=== PATIENT | female | born 1960 | race Caucasian/White ===

== ENCOUNTER → 2017-01-15 | Outpatient (CLI) | payer BC | LOC: MW.CHIM 11:26 | PROVIDERS: ATTEND Internal Medicine | DX: Z01.818 Encounter for other preprocedural examination (principal) | CPT/HCPCS: 36415; 85025; 85610 ==

== ENCOUNTER 2017-01-30 06:22 | Day surgery (SDC) | payer BC ==
[2017-01-30] MEDS ORDERED: Aloe Vera/Sodium Chloride Gel 14.1 GM Tube ONE (07:15)
[2017-01-30] MEDS ORDERED: EPINEPHrine 1:1000 1 MG/ML SDV ONE (07:15)
[2017-01-30] MEDS ORDERED: Lidocaine 2% 5 ML SDV ONE ×2 (07:16→07:34)
[2017-01-30] MEDS ORDERED: Thrombin (Bovine) 5,000 Unit Kit ONE (07:16)
[2017-01-30] MEDS ORDERED: Lidocaine 2% with EPINEPHrine 1:100,000 20 ML MDV ONE (07:16)
[2017-01-30] MEDS ORDERED: Oxymetazoline 0.05% Nasal Spray 15 ML Bottle ONE (07:17)
[2017-01-30] MEDS ORDERED: Remifentanil 1 MG Vial ONE (07:25)
[2017-01-30] MEDS ORDERED: Propofol 200 MG/20 ML SDV ONE (07:27)
[2017-01-30] MEDS ORDERED: fentaNYL 100 MCG/2 ML SDV ONE (07:27)
--- NOTE | 2017-01-30 07:31 | PCM.PREANE ---
Preanesthetic Assessment - Anesthesia/Transfusion/Family Hx Anesthesia History: Prior Anesthesia Reaction Type of Anesthesia Reaction: Excessive Nausea/Vomiting Other Type of Anesthesia Reaction Comment: Reports Nausea and vomiting post anesthesia, no known family hx: prblms Family History of Anesthesia Reaction: No Transfusion History: No Prior Transfusion(s) - Review of Systems General: No Symptoms Pulmonary: No Symptoms Cardiovascular: No Symptoms Gastrointestinal: No symptoms Neurological: No Symptoms Other: Reports: None - Physical Assessment NPO Status Date: 01/29/17 O2 Sat by Pulse Oximetry: 98 Respiratory Rate: 16 Vital Signs: Last Vital Signs Temp 36.9 C 01/30/17 06:45 Pulse 62 01/30/17 06:45 Resp 16 01/30/17 06:45 BP 97/70 01/30/17 06:45 Pulse Ox 98 01/30/17 06:45 Height: 1.55 m Weight: 54.431 kg ASA Class: 2 Mental Status: Alert & Oriented x3 Airway Class: Mallampati = 1 Dentition: Reports: Normal Dentition ROM/Head Extension: Full Lungs: Clear to auscultation, Normal respiratory effort Cardiovascular: Regular Rate, Regular Rhythm - Allergies Allergies/Adverse Reactions: Allergies Allergy/AdvReac Type Severity Reaction Status Date / Time erythromycin base Allergy Anaphylactic Verified 07/04/16 12:38 [Erythromycin Base] Shock fluticasone [From Flonase] Allergy Dizziness Verified 01/28/17 13:21 iodine Allergy Other Verified 07/04/16 12:38 Sulfa Allergy Rash Uncoded 07/04/16 12:38 - Anesthesia Plan Pre-Op Medication Ordered: None - Acknowledgements Anesthesia Type Planned: General Anesthesia Pt an Appropriate Candidate for the Planned Anesthesia: Yes Alternatives and Risks of Anesthesia Discussed w Pt/Guardian: Yes Pt/Guardian Understands and Agrees with Anesthesia Plan: Yes PreAnesthesia Questionnaire HEENT History: Reports: Other (see below) Other HEENT History: uses reading glasses, hx of fx nose Cardiovascular History: Reports: Other (see below) Other Cardiovascular History: states has low heart rate, states has "seepage", but was told it is normal Respiratory History: Reports: None Gastrointestinal History: Reports: None Genitourinary History: Reports: None VOCATIONAL EDUCATION PROFESSIONAL History: Reports: None Musculoskeletal History: Reports: Back pain, chronic, Neck pain, chronic Neurological History: Reports: None Psychiatric History: Reports: None Endocrine/Metabolic History: Reports: None Hematologic History: Reports: None Immunologic History: Reports: None Oncologic (Cancer) History: Reports: None Dermatologic History: Reports: None - Past Surgical History Head Surgeries/Procedures: Reports: None HEENT Surgical History: Reports: Cataract surgery Cardiovascular Surgical History: Reports: None GI Surgical History: Reports: Appendectomy Female Surgical History: Reports: Other (see below) Other Female Surgeries/Procedures: Laparoscopy Endocrine Surgical History: Reports: None Neurological Surgical History: Reports: None Musculoskeletal Surgical History: Reports: None Oncologic Surgical History: Reports: None - SUBSTANCE USE Smoking Status *Q: Never Smoker Tobacco Use Within Last Twelve Months: No Days Per Week of Alcohol Use: 0 Number of Drinks Per Day: 0 Total Drinks Per Week: 0 Recreational Drug Use History: No - HOME MEDS Home Medications: Home Meds Estradiol [Vagifem] 1 tab VAG ASDIRECTED 01/28/17 [History] Multivitamin [Multivitamins] 1 tab PO DAILY 01/28/17 [History] Simply Saline 9% 1 spray NASBOTH ASDIRECTED 01/28/17 [History] medroxyPROGESTERone Acetate [Medroxyprogesterone Acetate] 1 tab PO ASDIRECTED [History] - CURRENT (IN HOUSE) MEDS Current Meds: Current Medications Discontinued Medications Epinephrine HCl (Adrenalin 1:1000) Confirm Administered Dose 3 mg .ROUTE .STK- MED ONE Stop: 01/30/17 07:16 Lidocaine (Xylocaine-Mpf 2%) Confirm Administered Dose 10 ml .ROUTE .STK-MED ONE Stop: 01/30/17 07:17 Lidocaine HCl (Xylocaine-Mpf 1%) Confirm Administered Dose 10 ml .ROUTE .STK- MED ONE Stop: 01/30/17 07:16 Lidocaine/Epinephrine (Xylocaine 2% With Epinephrine 1:100,000) Confirm Administered Dose 20 ml .ROUTE .STK-MED ONE Stop: 01/30/17 07:17 Oxymetazoline HCl (Afrin Original 0.05% Nasal [place]) Confirm Administered Dose 30 ml .ROUTE .STK-MED ONE Stop: 01/30/17 07:18 Remifentanil (Ultiva) Confirm Administered Dose 1 mg .ROUTE .STK-MED ONE Stop: 01/30/17 07:26 Sodium Chloride ([place] Saline Nasal Gel) Confirm Administered Dose 14.1 gm .ROUTE .STK-MED ONE Stop: 01/30/17 07:16 Thrombin (Thrombin-Jmi) Confirm Administered Dose 5,000 unit .ROUTE .STK-MED ONE Stop: 01/30/17 07:17 Preanesthetic Assessment - ANESTHESIA/TRANSFUSION/FAMILY HX Anesthesia/Transfusion History: Prior Anesthesia Other Type of Anesthesia Reaction Comment: Reports Nausea and vomiting post anesthesia, no known family hx: prblms Family History of Anesthesia Reaction: No Intubation History: Unknown - PHYSICAL ASSESSMENT O2 Sat by Pulse Oximetry: 98 RR: 16 Vital Signs: Last Vital Signs Temp 36.9 C 01/30/17 06:45 Pulse 62 01/30/17 06:45 Resp 16 01/30/17 06:45 BP 97/70 01/30/17 06:45 Pulse Ox 98 01/30/17 06:45 Height: 1.55 m Weight: 54.431 kg - ALLERGIES Allergies/Adverse Reactions: Allergies Allergy/AdvReac Type Severity Reaction Status Date / Time erythromycin base Allergy Anaphylactic Verified 07/04/16 12:38 [Erythromycin Base] Shock fluticasone [From Flonase] Allergy Dizziness Verified 01/28/17 13:21 iodine Allergy Other Verified 07/04/16 12:38 Sulfa Allergy Rash Uncoded 07/04/16 12:38
[2017-01-30] MEDS ORDERED: Neostigmine Methylsulfate 1 MG/ML 5 ML Syringe ONE (07:34)
[2017-01-30] MEDS ORDERED: diphenhydrAMINE 50 MG/ML SDV ONE (07:34)
[2017-01-30] MEDS ORDERED: Rocuronium 10 MG/ML 10 ML Syringe ONE (07:34)
[2017-01-30] MEDS ORDERED: Dexamethasone 4 MG/ML 5 ML MDV ONE (07:34)
[2017-01-30] MEDS ORDERED: Ondansetron 4 MG/2 ML SDV ONE ×2 (07:34→11:33)
[2017-01-30] MEDS ORDERED: Midazolam 1 MG/ML 2 ML SDV ONE (07:39)
--- NOTE | 2017-01-30 07:54 | PCM.HPR ---
H & P Addendum review - H & P Addendum Review Date of Original H & P: 01/15/17 Date Reviewed: 01/30/17 Time Reviewed: 07:50 Patient was examined: No Changes
[2017-01-30] MEDS ORDERED: ePHEDrine 50 MG/ML SDV ONE (08:56)
[2017-01-30] MEDS ORDERED: Phenylephrine/Normal Saline 100 MCG/ML 10 ML Syringe ONE (09:14)
[2017-01-30] MEDS ORDERED: Mineral Oil/Petrolatum Ophth Oint 3.5 GM Tube ONE (09:15)
[2017-01-30] MEDS ORDERED: fentaNYL 100 MCG/2 ML SDV IVPUSH PRN (09:41)
[2017-01-30] MEDS ORDERED: Ondansetron 4 MG/2 ML SDV IVPUSH ONE ×2 (10:59→11:45)
--- NOTE | 2017-01-30 11:27 | PCM.OPNOTE ---
- General Post-Op/Procedure Note Date of Surgery/Procedure: 01/30/17 Condition: Good Free Text/Narrative:: Intake & Output 01/29/17 01/30/17 01/30/17 22:59 06:59 14:59 Intake Total 1200 Balance 1200 Diagnosis: Right nasal polyp,right nasal congestion, Post nasal drip Procedure: Right endoscopic nasal polypectomy [ CPT 57306] w sinus navigation [ CPT 48888] Surgeon: Cynthia Young MD Anesthesia: GA Anesthesiologist: Dr Curtis Date of procedure: 01/30/17 Indications: Right nasal polyp,right nasal congestion, Post nasal drip Findings: Right Grade 2 nasal polyp - in the sphenoethmoid recess and originating from the nasal septal mucosa; Sphenoid sinus ostium visualized - sinus healthy Operation Details: The Videdressing navigation system was set up and the Tracker was fixed to the fore head as per protocol. Successful registration was obtained. A 0 degree pediatric rigid nasal endoscope was used and a cottonoid pledget soaked in Afrin and then followed by 1: 1000 epinephrine was placed in the right posterior nasal cavity between the septum and superior turbinate - spheno ethmoid recess. After appropriate period of decongestion the cottonoid pledgets were removed. Photo documentation was obtained. The nasal septum was gently pushed to the contralateral side with freer elevator and the 0 rigid nasal endoscope was advanced into the spheno ethmoid recess. A 3.0 microdebrider with navigation attached to it was used and the polyp was removed. Hemostasis was achieved and a small piece of surgicel was placed in the operated site. At all times - navigation accuracy and monitoring was maintained. This concluded the procedure and the patient was handed over to anesthesia for recovery. Specimens: The polyp tissue in suction trap IV fluids: as above Blood products: nil Blood loss : 2 ml Disposition: PACU for recovery Follow up: In 1 week.
[2017-01-30] MEDS ORDERED: Acetaminophen 1,000 MG in Premix Bag 1 BAG IV ONE (12:10)
[2017-01-30 13:15] VITALS: BP 122/62
--- NOTE | 2017-01-30 13:23 | PCM48HPAN ---
Post Anesthesia Note - EVALUATION WITHIN 48HRS OF ANESTHETIC Vital Signs in Normal Range: Yes Patient Participated in Evaluation: Yes Respiratory Function Stable: Yes Airway Patent: Yes Cardiovascular Function Stable: Yes Hydration Status Stable: Yes Pain Control Satisfactory: Yes Nausea and Vomiting Control Satisfactory: Yes Mental Status Recovered: Yes
--- NOTE | 2017-01-30 13:23 | PCM.POSTAN ---
POST ANESTHESIA ASSESSMENT - MENTAL STATUS Mental Status: alert, oriented - RESPIRATORY Respiratory Status: respiratory rate WNL, airway patent - CARDIOVASCULAR CV Status: pulse rate WNL, blood pressure stable - GASTROINTESTINAL GI Status: nauseau - POST OP HYDRATION Hydration Status: adequate & stable
== END 2017-01-30 13:10 | disposition home or self-care (01) ==
LOC: MW.SDS 06:22
PROVIDERS: ATTEND Otolaryngology
PROC: 8E09XBZ Computer Assisted Procedure of Head and Neck Region (ICD-10-PCS; principal; 2017-01-30)
PROC: 09BK0ZZ Excision of Nasal Mucosa and Soft Tissue, Open Approach (ICD-10-PCS; 2017-01-30)
DX: J33.8 Other polyp of sinus (principal); Z88.8 Allergy status to other drugs, medicaments and biological substances; Z88.1 Allergy status to other antibiotic agents; Z88.2 Allergy status to sulfonamides; Z91.041 Radiographic dye allergy status; Z91.048 Other nonmedicinal substance allergy status; Z79.899 Other long term (current) drug therapy; Z98.49 Cataract extraction status, unspecified eye; Z90.49 Acquired absence of other specified parts of digestive tract; Z98.890 Other specified postprocedural states
CPT/HCPCS: 31237; 61782; 88304; A9270; J0171; J1100; J1200; J2250; J2405; J3010; 00160; J2704

== ENCOUNTER 2020-08-24 14:32 | Observation (INO) | payer OTHER ==
[2020-08-24] MEDS ORDERED: Meclizine 25 MG Tab PO ONE (14:53)
--- NOTE | 2020-08-24 14:58 | EDM.PDOC ---
ED HPI GENERAL MEDICAL PROBLEM - General Chief Complaint: Back Pain or Injury Stated Complaint: LOWER BACK PAIN Time Seen by Provider: 08/24/20 14:37 Source of Information: Reports: Patient History Limitations: Reports: No Limitations - History of Present Illness INITIAL COMMENTS - FREE TEXT/NARRATIVE: Patient is a 59-year-old female who presents today for dizziness. Patient does feel that she is off balance. Patient is a symptom started on Saturday. Patient states that symptoms are made worse with standing or turning head. Patient states that this medicine symptoms go away. Patient denies nausea vomiting diarrhea chest pain abdominal pain. bilateral flank Pain Score (Numeric/FACES): 5 - Related Data Allergies Allergy/AdvReac Type Severity Reaction Status Date / Time erythromycin base Allergy Anaphylactic Verified 08/24/20 14:44 [Erythromycin Base] Shock fluticasone [From Flonase] Allergy Dizziness Verified 08/24/20 14:44 iodine Allergy Other Verified 08/24/20 14:44 Sulfa Allergy Rash Uncoded 08/24/20 14:44 Home Meds: Home Meds Multivitamin [Multivitamins] 1 tab PO DAILY 01/28/17 [History] Ondansetron [Zofran ODT] 1 tab PO Q6H PRN 08/24/20 [History] metroNIDAZOLE [Metronidazole] 1 tab PO TID 08/24/20 [History] Past Medical History HEENT History: Reports: None Other HEENT History: uses reading glasses, hx of fx nose Cardiovascular History: Reports: None Other Cardiovascular History: states has low heart rate, states has "seepage", but was told it is normal Respiratory History: Reports: None Gastrointestinal History: Reports: None Genitourinary History: Reports: None PIGMENT PRESSER History: Reports: Endometriosis Musculoskeletal History: Reports: None Neurological History: Reports: None Psychiatric History: Reports: None Endocrine/Metabolic History: Reports: None Hematologic History: Reports: None Immunologic History: Reports: None Oncologic (Cancer) History: Reports: None Dermatologic History: Reports: None - Past Surgical History Head Surgeries/Procedures: Reports: None HEENT Surgical History: Reports: Other (See Below) Other HEENT Surgeries/Procedures: Nasal Polyp GI Surgical History: Reports: Appendectomy Female Surgical History: Reports: Other (See Below) Other Female Surgeries/Procedures: Urethral reconstruction, Laparoscopy Endocrine Surgical History: Reports: None Neurological Surgical History: Reports: None Oncologic Surgical History: Reports: None Social & Family History - Family History Family Medical History: Noncontributory - Tobacco Use Tobacco Use Status *Q: Never Tobacco User - Recreational Drug Use Recreational Drug Use: No ED ROS GENERAL - Review of Systems Review Of Systems: Comprehensive ROS is negative, except as noted in HPI. Respiratory: Reports: No Symptoms Cardiovascular: Reports: No Symptoms GI/Abdominal: Reports: No Symptoms : Reports: No Symptoms Musculoskeletal: Reports: Back Pain Skin: Reports: No Symptoms Neurological: Reports: Dizziness Psychiatric: Reports: No Symptoms Hematologic/Lymphatic: Reports: No Symptoms ED EXAM, GENERAL - Physical Exam Exam: See Below Exam Limited By: No Limitations General Appearance: Alert, WD/WN Eye Exam: Bilateral Eye: EOMI, PERRL Respiratory/Chest: No Respiratory Distress Cardiovascular: Regular Rate, Rhythm GI/Abdominal: Normal Bowel Sounds Neurological: Alert, Oriented, CN II-XII Intact, Normal Cognition, Normal Gait Course - Vital Signs Last Recorded V/S: Last Vital Signs Temp 97.4 F 08/24/20 14:40 Pulse 61 08/24/20 18:20 Resp 14 08/24/20 18:20 BP 110/61 08/24/20 18:20 Pulse Ox 96 08/24/20 18:20 - Orders/Labs/Meds Orders: Medication Orders Acetaminophen (Tylenol) 650 mg PO Q4H PRN PRN Reason: Pain (Mild 1-3)/fever Heparin Sodium (Porcine) (Heparin Sodium) 5,000 units SUBCUT Q8H [facility] Lactated Ringer's (Ringers, Lactated) 1,000 mls @ 999 mls/hr IV BOLUS ONE Stop: 08/24/20 20:03 Pantoprazole Sodium 40 mg/ (Sodium Chloride) 10 mls @ 300 mls/hr IV Q24H [facility] Ceftriaxone Sodium 1 gm/ (Sodium Chloride) 50 mls @ 100 mls/hr IV Q24H [facility] Lactated Ringer's (Ringers, Lactated) 1,000 mls @ 125 mls/hr IV ASDIRECTED [facility] Ondansetron HCl (Zofran Odt) 4 mg PO Q4H PRN PRN Reason: nausea, able to take PO Labs: Laboratory Tests 08/24/20 08/24/20 08/24/20 Range/Units 15:10 15:10 16:31 WBC 10.50 (4.0-11.0) K/uL RBC 4.99 (4.30-5.90) M/uL Hgb 15.3 (12.0-16.0) g/dL Hct 46.2 H (36.0-46.0) % MCV 92.6 (80.0-98.0) fL MCH 30.7 (27.0-32.0) pg MCHC 33.1 (31.0-37.0) g/dL RDW Std Deviation 43.0 (28.0-62.0) fl RDW Coeff of Janett 13 (11.0-15.0) % Plt Count 204 (150-400) K/uL MPV 9.80 (7.40-12.00) fL Neut % (Auto) 70.6 (48.0-80.0) % Lymph % (Auto) 20.2 (16.0-40.0) % [place] % (Auto) 8.3 (0.0-15.0) % Eos % (Auto) 0.6 (0.0-7.0) % Baso % (Auto) 0.3 (0.0-1.5) % Neut # (Auto) 7.4 H (1.4-5.7) K/uL Lymph # (Auto) 2.1 (0.6-2.4) K/uL [place] # (Auto) 0.9 H (0.0-0.8) K/uL Eos # (Auto) 0.1 (0.0-0.7) K/uL Baso # (Auto) 0.0 (0.0-0.1) K/uL Nucleated RBC % 0.0 /100WBC Nucleated RBCs # 0 K/uL Sodium 139 (136-145) mmol/L Potassium 3.8 (3.5-5.1) mmol/L Chloride 105 (98-107) mmol/L Carbon Dioxide 24.6 (21.0-32.0) mmol/L BUN 32 H (7.0-18.0) mg/dL Creatinine 3.8 H (0.6-1.0) mg/dL Est Cr Clr Drug Dosing 11.17 mL/min Estimated GFR (MDRD) 12.1 ml/min Glucose 113 H (74-106) mg/dL Calcium 8.9 (8.5-10.1) mg/dL Urine Color YELLOW Urine Appearance CLOUDY Urine pH 5.5 (5.0-8.0) Ur Specific [place] 1.010 (1.001-1.035) Urine Protein NEGATIVE (NEGATIVE) mg/dL Urine Glucose (UA) NEGATIVE (NEGATIVE) mg/dL Urine Ketones NEGATIVE (NEGATIVE) mg/dL Urine Occult Blood MODERATE H (NEGATIVE) Urine Nitrite NEGATIVE (NEGATIVE) Urine Bilirubin NEGATIVE (NEGATIVE) Urine Urobilinogen 0.2 (<2.0) EU/dL Ur Leukocyte Esterase MODERATE H (NEGATIVE) Urine RBC 3-6 (0-2/HPF) Urine WBC 5-10 (0-5/HPF) Ur Epithelial Cells RARE (NONE-FEW) Urine Bacteria FEW (NEGATIVE) SARS-CoV-2 RNA (RADHAMES) (NEGATIVE) 08/24/20 Range/Units 17:05 WBC (4.0-11.0) K/uL RBC (4.30-5.90) M/uL Hgb (12.0-16.0) g/dL Hct (36.0-46.0) % MCV (80.0-98.0) fL MCH (27.0-32.0) pg MCHC (31.0-37.0) g/dL RDW Std Deviation (28.0-62.0) fl RDW Coeff of Janett (11.0-15.0) % Plt Count (150-400) K/uL MPV (7.40-12.00) fL Neut % (Auto) (48.0-80.0) % Lymph % (Auto) (16.0-40.0) % [place] % (Auto) (0.0-15.0) % Eos % (Auto) (0.0-7.0) % Baso % (Auto) (0.0-1.5) % Neut # (Auto) (1.4-5.7) K/uL Lymph # (Auto) (0.6-2.4) K/uL [place] # (Auto) (0.0-0.8) K/uL Eos # (Auto) (0.0-0.7) K/uL Baso # (Auto) (0.0-0.1) K/uL Nucleated RBC % /100WBC Nucleated RBCs # K/uL Sodium (136-145) mmol/L Potassium (3.5-5.1) mmol/L Chloride (98-107) mmol/L Carbon Dioxide (21.0-32.0) mmol/L BUN (7.0-18.0) mg/dL Creatinine (0.6-1.0) mg/dL Est Cr Clr Drug Dosing mL/min Estimated GFR (MDRD) ml/min Glucose (74-106) mg/dL Calcium (8.5-10.1) mg/dL Urine Color Urine Appearance Urine pH (5.0-8.0) Ur Specific [place] (1.001-1.035) Urine Protein (NEGATIVE) mg/dL Urine Glucose (UA) (NEGATIVE) mg/dL Urine Ketones (NEGATIVE) mg/dL Urine Occult Blood (NEGATIVE) Urine Nitrite (NEGATIVE) Urine Bilirubin (NEGATIVE) Urine Urobilinogen (<2.0) EU/dL Ur Leukocyte Esterase (NEGATIVE) Urine RBC (0-2/HPF) Urine WBC (0-5/HPF) Ur Epithelial Cells (NONE-FEW) Urine Bacteria (NEGATIVE) SARS-CoV-2 RNA (RADHAMES) NEGATIVE (NEGATIVE) Meds: Medications Generic Name Dose Route Start Last Admin Trade Name Freq PRN Reason Stop Dose Admin Acetaminophen 650 mg 08/24/20 19:03 Tylenol PO Q4H PRN Pain (Mild 1-3)/fever Heparin Sodium (Porcine) 5,000 units 08/24/20 19:15 Heparin Sodium SUBCUT Q8H [facility] Lactated Ringer's 1,000 mls @ 999 mls/hr 08/24/20 19:03 Ringers, Lactated IV 08/24/20 20:03 BOLUS ONE Pantoprazole Sodium 40 mg/ 10 mls @ 300 mls/hr 08/24/20 19:15 Sodium Chloride IV Q24H [facility] Ceftriaxone Sodium 1 gm/ 50 mls @ 100 mls/hr 08/24/20 19:15 Sodium Chloride IV Q24H [facility] Lactated Ringer's 1,000 mls @ 125 mls/hr 08/24/20 20:30 Ringers, Lactated IV ASDIRECTED [facility] Ondansetron HCl 4 mg 08/24/20 19:03 Zofran Odt PO Q4H PRN nausea, able to take PO Discontinued Medications Generic Name Dose Route Start Last Admin Trade Name Freq PRN Reason Stop Dose Admin Ceftriaxone Sodium 1 gm 08/24/20 17:09 08/24/20 17:14 Rocephin IVPUSH 08/24/20 17:10 Not Given ONETIME ONE Ceftriaxone Sodium/Dextrose 1 50 mls @ 100 mls/hr 08/24/20 17:13 08/24/20 17:20 gm/ Premix IV 08/24/20 17:42 100 mls/hr ONETIME ONE Administration Meclizine HCl 50 mg 08/24/20 14:53 08/24/20 15:09 Antivert PO 08/24/20 14:54 50 mg ONETIME ONE Administration Departure - Departure Time of Disposition: 18:09 Disposition: Admitted As Inpatient 64 Clinical Impression: Pyelonephritis, ANN-MARIE (acute kidney injury) - Discharge Information *PRESCRIPTION DRUG MONITORING PROGRAM REVIEWED*: Not Applicable *COPY OF PRESCRIPTION DRUG MONITORING REPORT IN PATIENT VIVI: Not Applicable Sepsis Event Note (ED) - Evaluation Sepsis Screening Result: No Definite Risk - Focused Exam Vital Signs: Vital Signs Temp Pulse Resp BP Pulse Ox 08/24/20 17:42 62 16 109/65 95 08/24/20 17:00 61 95 08/24/20 16:13 61 101/54 L 95 08/24/20 15:12 85 16 110/57 L 96 08/24/20 14:40 97.4 F 69 16 125/68 96 - Assessment/Plan Plan: Patient is a 59-year-old female who presents today for dizziness that started Saturday. It is made worse with standing turn head dizziness likely peripheral has no other neurological symptoms will be have labs given meclizine and reassess. Patient was found to have ANN-MARIE. We did a CAT scan that shows Perinephric stranding patient likely has pyelonephritis started on ceftriaxone will be admitted to hospital for further care.
[2020-08-24 15:38] LABS: CARBON DIOXIDE,CO2 24.6 mmol/L (21.0-32.0); POTASSIUM,K 3.8 mmol/L (3.5-5.1)
--- NOTE | 2020-08-24 17:07 | CT ---
Indication: Flank pain Technique: Volumetric multidetector CT images of the abdomen and pelvis were without the administration of intravenous contrast. Comparison: CT abdomen and pelvis August 15, 2020 Number of previous computed tomography exams in the last 12 months is 0. Number of previous nuclear medicine myocardial perfusion studies in the last 12 months is 0. Findings: The lung bases are clear. he liver is normal in attenuation without intrahepatic biliary ductal dilatation. The gallbladder again demonstrates calcified gallstones within the gallbladder fundus. There is no significant common biliary ductal dilatation or abrupt cut off. The spleen is normal in attenuation and size. The stomach and duodenum are grossly unremarkable. The pancreas is normal in attenuation without significant atrophy. The adrenal glands are unremarkable. There is interval development of somewhat nonspecific bilateral perihilar nephric stranding. There is no evidence of obstructing radiopaque calculus. Again seen is a simple exophytic cysts arising from the superior pole of the right kidney. There is moderate stool seen throughout the colon with mild to moderate distal colonic diverticulosis without evidence of diverticulitis. The appendix is not well visualized. There is no significant mesenteric, retroperitoneal, or pelvic sidewall lymph nodes. The aorta is nonaneurysmal. There is no significant atherosclerotic disease appreciated. The solid pelvic viscera are grossly unremarkable. There is no free fluid or free air. The anterior abdominal wall is intact without significant hernias. The lumbar vertebral body heights are grossly maintained in satisfactory alignment without evidence of displaced fracture, lytic or blastic lesion. Impression: Interval development of nonspecific perinephric stranding of the bilateral kidneys without evidence of radiopaque calculus. This finding could represent developing pyelonephritis in the setting of urinary tract infection. Correlate with history of clinical symptoms and laboratory values. Please note that all CT scans at this facility use dose modulation, iterative reconstruction, and/or weight-based dosing when appropriate to reduce radiation dose to as low as reasonably achievable. Dictated by Junior Ibanez MD @ Aug 24 2020 4:57PM Signed by Dr. Junior Ibanez @ Aug 24 2020 5:05PM
[2020-08-24] MEDS ORDERED: cefTRIAXone 1 GM Vial IVPUSH ONE (17:09)
[2020-08-24] MEDS ORDERED: cefTRIAXone 1 GM in Premix Bag 1 BAG IV ONE (17:13)
[2020-08-24] MEDS ORDERED: Lactated Ringers 1,000 ML IV ONE (19:03)
[2020-08-24] MEDS ORDERED: Fluconazole Susp 40 MG/1 ML 35 ML Bottle PO SCH (19:30)
--- NOTE | 2020-08-24 19:37 | PCM.HP.2 ---
<Joanna Love - Last Filed: 08/24/20 19:46> H&P History of Present Illness - General Date of Service: 08/24/20 Admit Problem/Dx: Admission Diagnosis/Problem Admission Diagnosis/Problem Pyelonephritis - History of Present Illness Initial Comments - Free Text/Narative: Pt is a 59 y/o F with no sig PHMx. Developed nausea, dizziness 1 week ago with recent development of back/flank pain bilaterally 2 days ago. Pt endorsed some associated fever, chills, but no suprapubic tenderness,urinary freq, or dysuria, urgency, or any changes in urine. Denies any aggravating or alleviating factors. Denies trying anything for her symptoms. In addition complaints of some new onset of vaginal discomfort, denies any lesions, rash, discharge, says it feels like a yeast infection she has experience before. Onset of Symptoms: Reports: Sudden Location: Reports: Back Quality: Reports: Ache, Dull Improves with: Reports: None Worsens with: Reports: None Associated Symptoms: Reports: Fever/Chills, Headaches, Nausea/Vomiting bilateral flank Pain Score (Numeric/FACES): 5 - Related Data Allergies/Adverse Reactions: Allergies Allergy/AdvReac Type Severity Reaction Status Date / Time erythromycin base Allergy Anaphylactic Verified 08/24/20 14:44 [Erythromycin Base] Shock fluticasone [From Flonase] Allergy Dizziness Verified 08/24/20 14:44 iodine Allergy Other Verified 08/24/20 14:44 Sulfa Allergy Rash Uncoded 08/24/20 14:44 Home Medications: Home Meds Multivitamin [Multivitamins] 1 tab PO DAILY 01/28/17 [History] Ondansetron [Zofran ODT] 4 mg PO Q6H PRN 08/24/20 [History] metroNIDAZOLE [Metronidazole] 500 mg PO TID 08/24/20 [History] Ciprofloxacin HCl [Cipro] 500 mg PO BID 08/25/20 [History] Past Medical History HEENT History: Reports: None Other HEENT History: uses reading glasses, hx of fx nose Cardiovascular History: Reports: None Other Cardiovascular History: states has low heart rate, states has "seepage", but was told it is normal Respiratory History: Reports: None Gastrointestinal History: Reports: None Genitourinary History: Reports: None DIRECT MARKETING MANAGER History: Reports: Endometriosis Musculoskeletal History: Reports: None Neurological History: Reports: None Psychiatric History: Reports: None Endocrine/Metabolic History: Reports: None Hematologic History: Reports: None Immunologic History: Reports: None Oncologic (Cancer) History: Reports: None Dermatologic History: Reports: None - Past Surgical History Head Surgeries/Procedures: Reports: None HEENT Surgical History: Reports: Other (See Below) Other HEENT Surgeries/Procedures: Nasal Polyp GI Surgical History: Reports: Appendectomy Female Surgical History: Reports: Other (See Below) Other Female Surgeries/Procedures: Urethral reconstruction, Laparoscopy Endocrine Surgical History: Reports: None Neurological Surgical History: Reports: None Oncologic Surgical History: Reports: None Social & Family History - Family History Family Medical History: Noncontributory - Tobacco Use Tobacco Use Status *Q: Never Tobacco User - Recreational Drug Use Recreational Drug Use: No H&P Review of Systems - Review of Systems: Review Of Systems: See Below General: Reports: Chills HEENT: Reports: Headaches Pulmonary: Reports: No Symptoms Cardiovascular: Reports: No Symptoms Gastrointestinal: Reports: No Symptoms Genitourinary: Reports: Flank Pain. Denies: Dysuria, Frequency, Burning, Pain, Urgency, Incontinence, Hematuria, Retention, Discharge, Abnormal Menses, Dysmenorrhea Musculoskeletal: Reports: No Symptoms Skin: Reports: No Symptoms Psychiatric: Reports: No Symptoms Neurological: Reports: No Symptoms Hematologic/Lymphatic: Reports: No Symptoms Immunologic: Reports: No Symptoms Exam - Exam Exam: See Below - Vital Signs Vital Signs: Last Vital Signs Temp 97.4 F 08/24/20 14:40 Pulse 61 08/24/20 18:20 Resp 14 08/24/20 18:20 BP 110/61 08/24/20 18:20 Pulse Ox 96 08/24/20 18:20 Weight: 59.874 kg - Exam General: Alert, Oriented, Cooperative HEENT: Conjunctiva Clear, EOMI, Posterior Pharynx Clear, Pupils Equal, Pupils Reactive, PERRLA Neck: Supple, Trachea Midline, Full Range of Motion. No: Lymphadenopathy, JVD Lungs: Clear to Auscultation, Normal Respiratory Effort Cardiovascular: Regular Rate, Regular Rhythm, Normal S1, Normal S2 GI/Abdominal Exam: Normal Bowel Sounds, Soft, Non-Tender, No Organomegaly. No: Guarding, Rebound, Tender (Female) Exam: No: Vaginal Discharge, Vaginal Lesions Back Exam: CVA Tenderness (L), CVA Tenderness (R) Extremities: Normal Range of Motion, Non-Tender, No Pedal Edema Peripheral Pulses: 2+: Dorsalis Pedis (L), Dorsalis Pedis (R) Skin: Warm, Intact Neurological: Cranial Nerves Intact, Reflexes Equal Bilateral, Strength Equal Bilateral Neuro Extensive - Mental Status: Alert, Oriented x3, Normal Mood/Affect Neuro Extensive - Motor, Sensory, Reflexes: CN II-XII Intact, Normal Gait, Normal Reflexes DTR: 2+: Bicep (L), Bicep (R), Tricep (L), Tricep (R), Patella (L), Patella (R), Achilles (L), Achilles (R) Psychiatric: Alert, Normal Affect, Normal Mood - Patient Data Lab Results Last 24 hrs: Laboratory Results - last 24 hr 08/24/20 08/24/20 08/24/20 Range/Units 15:10 15:10 16:31 WBC 10.50 (4.0-11.0) K/uL RBC 4.99 (4.30-5.90) M/uL Hgb 15.3 (12.0-16.0) g/dL Hct 46.2 H (36.0-46.0) % MCV 92.6 (80.0-98.0) fL MCH 30.7 (27.0-32.0) pg MCHC 33.1 (31.0-37.0) g/dL RDW Std Deviation 43.0 (28.0-62.0) fl RDW Coeff of Janett 13 (11.0-15.0) % Plt Count 204 (150-400) K/uL MPV 9.80 (7.40-12.00) fL Neut % (Auto) 70.6 (48.0-80.0) % Lymph % (Auto) 20.2 (16.0-40.0) % Power % (Auto) 8.3 (0.0-15.0) % Eos % (Auto) 0.6 (0.0-7.0) % Baso % (Auto) 0.3 (0.0-1.5) % Neut # (Auto) 7.4 H (1.4-5.7) K/uL Lymph # (Auto) 2.1 (0.6-2.4) K/uL Power # (Auto) 0.9 H (0.0-0.8) K/uL Eos # (Auto) 0.1 (0.0-0.7) K/uL Baso # (Auto) 0.0 (0.0-0.1) K/uL Nucleated RBC % 0.0 /100WBC Nucleated RBCs # 0 K/uL Sodium 139 (136-145) mmol/L Potassium 3.8 (3.5-5.1) mmol/L Chloride 105 (98-107) mmol/L Carbon Dioxide 24.6 (21.0-32.0) mmol/L BUN 32 H (7.0-18.0) mg/dL Creatinine 3.8 H (0.6-1.0) mg/dL Est Cr Clr Drug Dosing 11.17 mL/min Estimated GFR (MDRD) 12.1 ml/min Glucose 113 H (74-106) mg/dL Calcium 8.9 (8.5-10.1) mg/dL Urine Color YELLOW Urine Appearance CLOUDY Urine pH 5.5 (5.0-8.0) Ur Specific [place] 1.010 (1.001-1.035) Urine Protein NEGATIVE (NEGATIVE) mg/dL Urine Glucose (UA) NEGATIVE (NEGATIVE) mg/dL Urine Ketones NEGATIVE (NEGATIVE) mg/dL Urine Occult Blood MODERATE H (NEGATIVE) Urine Nitrite NEGATIVE (NEGATIVE) Urine Bilirubin NEGATIVE (NEGATIVE) Urine Urobilinogen 0.2 (<2.0) EU/dL Ur Leukocyte Esterase MODERATE H (NEGATIVE) Urine RBC 3-6 (0-2/HPF) Urine WBC 5-10 (0-5/HPF) Ur Epithelial Cells RARE (NONE-FEW) Urine Bacteria FEW (NEGATIVE) SARS-CoV-2 RNA (RADHAMES) (NEGATIVE) 08/24/20 Range/Units 17:05 WBC (4.0-11.0) K/uL RBC (4.30-5.90) M/uL Hgb (12.0-16.0) g/dL Hct (36.0-46.0) % MCV (80.0-98.0) fL MCH (27.0-32.0) pg MCHC (31.0-37.0) g/dL RDW Std Deviation (28.0-62.0) fl RDW Coeff of Janett (11.0-15.0) % Plt Count (150-400) K/uL MPV (7.40-12.00) fL Neut % (Auto) (48.0-80.0) % Lymph % (Auto) (16.0-40.0) % Power % (Auto) (0.0-15.0) % Eos % (Auto) (0.0-7.0) % Baso % (Auto) (0.0-1.5) % Neut # (Auto) (1.4-5.7) K/uL Lymph # (Auto) (0.6-2.4) K/uL Power # (Auto) (0.0-0.8) K/uL Eos # (Auto) (0.0-0.7) K/uL Baso # (Auto) (0.0-0.1) K/uL Nucleated RBC % /100WBC Nucleated RBCs # K/uL Sodium (136-145) mmol/L Potassium (3.5-5.1) mmol/L Chloride (98-107) mmol/L Carbon Dioxide (21.0-32.0) mmol/L BUN (7.0-18.0) mg/dL Creatinine (0.6-1.0) mg/dL Est Cr Clr Drug Dosing mL/min Estimated GFR (MDRD) ml/min Glucose (74-106) mg/dL Calcium (8.5-10.1) mg/dL Urine Color Urine Appearance Urine pH (5.0-8.0) Ur Specific [place] (1.001-1.035) Urine Protein (NEGATIVE) mg/dL Urine Glucose (UA) (NEGATIVE) mg/dL Urine Ketones (NEGATIVE) mg/dL Urine Occult Blood (NEGATIVE) Urine Nitrite (NEGATIVE) Urine Bilirubin (NEGATIVE) Urine Urobilinogen (<2.0) EU/dL Ur Leukocyte Esterase (NEGATIVE) Urine RBC (0-2/HPF) Urine WBC (0-5/HPF) Ur Epithelial Cells (NONE-FEW) Urine Bacteria (NEGATIVE) SARS-CoV-2 RNA (RADHAMES) NEGATIVE (NEGATIVE) Result Diagrams: 08/24/20 15:10 08/24/20 15:10 Sepsis Event Note - Evaluation Sepsis Screening Result: No Definite Risk - Focused Exam Vital Signs: Vital Signs Temp Pulse Resp BP Pulse Ox 10/28/20 18:20 61 14 110/61 96 08/24/20 17:42 62 16 109/65 95 08/24/20 17:00 61 95 08/24/20 16:13 61 101/54 L 95 08/24/20 15:12 85 16 110/57 L 96 08/24/20 14:40 97.4 F 69 16 125/68 96 - Problem List (1) Vaginal candidiasis SNOMED Code(s): 00642682 ICD Code: B37.3 - CANDIDIASIS OF VULVA AND VAGINA Status: Acute Current Visit: Yes (2) Pyelonephritis SNOMED Code(s): 23226324 ICD Code: N12 - TUBULO-INTERSTITIAL NEPHRITIS, NOT SPCF ACUTE OR CHRONIC Status: Acute Current Visit: Yes (3) ANN-MARIE (acute kidney injury) SNOMED Code(s): 40329812, 25539494 ICD Code: N17.9 - ACUTE KIDNEY FAILURE, UNSPECIFIED Status: Acute Current Visit: Yes Problem List Initiated/Reviewed/Updated: Yes Orders Last 24hrs: Active Orders 24 hr Category Date Time Status Patient Status [ADT] Routine ADT 08/24/20 18:10 Active Oxygen Therapy [RC] PRN Care 08/24/20 19:03 Ordered Up ad Isrrael [RC] ASDIRECTED Care 08/24/20 19:03 Ordered VTE/DVT Education [RC] PER UNIT ROUTINE Care 08/24/20 19:03 Ordered Vital Signs [RC] Q4H Care 08/24/20 19:03 Ordered Regular Diet [DIET] Diet 08/24/20 Dinner Ordered CBC WITH AUTO DIFF [HEME] AM Lab 08/25/20 05:11 Ordered CBC WITH AUTO DIFF [HEME] AM Lab 08/26/20 05:11 Ordered CBC WITH AUTO DIFF [HEME] AM Lab 08/27/20 05:11 Ordered COMPREHENSIVE METABOLIC PN,CMP [CHEM] AM Lab 08/25/20 05:11 Ordered COMPREHENSIVE METABOLIC PN,CMP [CHEM] AM Lab 08/26/20 05:11 Ordered COMPREHENSIVE METABOLIC PN,CMP [CHEM] AM Lab 08/27/20 05:11 Ordered CREATININE,URINE RAND [URCHEM] Urgent Lab 08/24/20 19:03 Ordered CULTURE BLOOD [BC] Stat Lab 08/24/20 19:18 Ordered CULTURE BLOOD [BC] Stat Lab 08/24/20 19:18 Ordered CULTURE URINE [RM] Stat Lab 08/24/20 19:03 Ordered MAGNESIUM [CHEM] AM Lab 08/25/20 05:11 Ordered MAGNESIUM [CHEM] AM Lab 08/26/20 05:11 Ordered MAGNESIUM [CHEM] AM Lab 08/27/20 05:11 Ordered PHOSPHORUS [CHEM] AM Lab 08/25/20 05:11 Ordered PHOSPHORUS [CHEM] AM Lab 08/26/20 05:11 Ordered PHOSPHORUS [CHEM] AM Lab 08/27/20 05:11 Ordered SODIUM,URINE RANDOM [URCHEM] Urgent Lab 08/24/20 19:03 Ordered Acetaminophen [TylenoL] Med 08/24/20 19:03 Ordered 650 mg PO Q4H PRN Fluconazole [Diflucan 40 MG/ML Susp] Med 08/24/20 19:30 Ordered 100 mg PO DAILY Heparin Sodium Med 08/24/20 19:15 Ordered 5,000 units SUBCUT Q8H Lactated Ringers @ 125 MLS/HR(1,000ml) Med 08/24/20 20:30 Ordered Lactated Ringers [Ringers, Lactated] 1,000 ml IV ASDIRECTED Lactated Ringers [Ringers, Lactated] 1,000 ml Med 08/24/20 19:03 Ordered IV BOLUS Ondansetron [Zofran ODT] Med 08/24/20 19:03 Ordered 4 mg PO Q4H PRN Pantoprazole [ProTONIX IV] 40 mg Med 08/24/20 19:15 Ordered Sodium Chloride 0.9% [Normal Saline] 10 ml IV Q24H cefTRIAXone [Rocephin] 1 gm Med 08/24/20 19:15 Ordered Sodium Chloride 0.9% [Normal Saline] 50 ml IV Q24H Blood Culture x2 Reflex Set [OM.PC] Stat Oth 08/24/20 19:03 Ordered Resuscitation Status Routine Resus Stat 08/24/20 19:03 Ordered Medication Orders Acetaminophen (Tylenol) 650 mg PO Q4H PRN PRN Reason: Pain (Mild 1-3)/fever Fluconazole (Diflucan 40 Mg/Ml Susp) 100 mg PO DAILY HOPE Stop: 08/31/20 19:31 Heparin Sodium (Porcine) (Heparin Sodium) 5,000 units SUBCUT Q8H HOPE Lactated Ringer's (Ringers, Lactated) 1,000 mls @ 999 mls/hr IV BOLUS ONE Stop: 08/24/20 20:03 Pantoprazole Sodium 40 mg/ (Sodium Chloride) 10 mls @ 300 mls/hr IV Q24H [facility] Ceftriaxone Sodium 1 gm/ (Sodium Chloride) 50 mls @ 100 mls/hr IV Q24H [facility] Lactated Ringer's (Ringers, Lactated) 1,000 mls @ 125 mls/hr IV ASDIRECTED [facility] Ondansetron HCl (Zofran Odt) 4 mg PO Q4H PRN PRN Reason: nausea, able to take PO Assessment/Plan Comment:: 59 y/o F with Pyelonephritis, ANN-MARIE and Vaginal Candidiasis 1. Pyelonephritis: Rocehpin 7-10 days, Fluids LR Bolus with 1L maintenance at 125cc/hr. Zofran for nausea, Tylenol for Pain. Bc/ UC 2.ANN-MARIE: elevated BUN/Cr, Trend daily with morning labs, Fluids as mentioned above, urine electrolytes Fene calc 3.Vaginal Candidasis: recent abx use, h/o prev infection similiar. Fluconazole 100 mg po daily 7 days. activity up ad/isrrael, Heparin 500 SubQ for DVT ppx, Pantoprazole 40mg daily GI ppx. <Glynn Tanner - Last Filed: 08/25/20 13:15> H&P History of Present Illness - General Admit Problem/Dx: Admission Diagnosis/Problem Admission Diagnosis/Problem Pyelonephritis Exam - Vital Signs Vital Signs: Last Vital Signs Temp 36.6 C 08/25/20 11:54 Pulse 57 L 08/25/20 11:54 Resp 16 08/25/20 11:54 BP 117/56 L 08/25/20 11:54 Pulse Ox 97 08/25/20 11:54 - Patient Data Lab Results Last 24 hrs: Laboratory Results - last 24 hr 08/24/20 08/24/20 08/24/20 Range/Units 15:10 15:10 16:31 WBC 10.50 (4.0-11.0) K/uL RBC 4.99 (4.30-5.90) M/uL Hgb 15.3 (12.0-16.0) g/dL Hct 46.2 H (36.0-46.0) % MCV 92.6 (80.0-98.0) fL MCH 30.7 (27.0-32.0) pg MCHC 33.1 (31.0-37.0) g/dL RDW Std Deviation 43.0 (28.0-62.0) fl RDW Coeff of Janett 13 (11.0-15.0) % Plt Count 204 (150-400) K/uL MPV 9.80 (7.40-12.00) fL Neut % (Auto) 70.6 (48.0-80.0) % Lymph % (Auto) 20.2 (16.0-40.0) % Power % (Auto) 8.3 (0.0-15.0) % Eos % (Auto) 0.6 (0.0-7.0) % Baso % (Auto) 0.3 (0.0-1.5) % Neut # (Auto) 7.4 H (1.4-5.7) K/uL Lymph # (Auto) 2.1 (0.6-2.4) K/uL Power # (Auto) 0.9 H (0.0-0.8) K/uL Eos # (Auto) 0.1 (0.0-0.7) K/uL Baso # (Auto) 0.0 (0.0-0.1) K/uL Nucleated RBC % 0.0 /100WBC Nucleated RBCs # 0 K/uL Sodium 139 (136-145) mmol/L Potassium 3.8 (3.5-5.1) mmol/L Chloride 105 (98-107) mmol/L Carbon Dioxide 24.6 (21.0-32.0) mmol/L BUN 32 H (7.0-18.0) mg/dL Creatinine 3.8 H (0.6-1.0) mg/dL Est Cr Clr Drug Dosing 11.17 mL/min Estimated GFR (MDRD) 12.1 ml/min Glucose 113 H (74-106) mg/dL Calcium 8.9 (8.5-10.1) mg/dL Phosphorus (2.6-4.7) mg/dL Magnesium (1.8-2.4) mg/dL Total Bilirubin (0.2-1.0) mg/dL AST (15-37) IU/L ALT (14-63) IU/L Alkaline Phosphatase (46-116) U/L Total Protein (6.4-8.2) g/dL Albumin (3.4-5.0) g/dL Globulin (2.6-4.0) g/dL Albumin/Globulin Ratio (0.9-1.6) Urine Color YELLOW Urine Appearance CLOUDY Urine pH 5.5 (5.0-8.0) Ur Specific [place] 1.010 (1.001-1.035) Urine Protein NEGATIVE (NEGATIVE) mg/dL Urine Glucose (UA) NEGATIVE (NEGATIVE) mg/dL Urine Ketones NEGATIVE (NEGATIVE) mg/dL Urine Occult Blood MODERATE H (NEGATIVE) Urine Nitrite NEGATIVE (NEGATIVE) Urine Bilirubin NEGATIVE (NEGATIVE) Urine Urobilinogen 0.2 (<2.0) EU/dL Ur Leukocyte Esterase MODERATE H (NEGATIVE) Urine RBC 3-6 (0-2/HPF) Urine WBC 5-10 (0-5/HPF) Ur Epithelial Cells RARE (NONE-FEW) Urine Bacteria FEW (NEGATIVE) Ur Random Creatinine mg/dL Ur Random Sodium (40.0-220.0) mmol/L SARS-CoV-2 RNA (RADHAMES) (NEGATIVE) 08/24/20 08/24/20 08/25/20 Range/Units 16:31 17:05 05:02 WBC 5.52 (4.0-11.0) K/uL RBC 4.18 L (4.30-5.90) M/uL Hgb 12.7 (12.0-16.0) g/dL Hct 38.8 (36.0-46.0) % MCV 92.8 (80.0-98.0) fL MCH 30.4 (27.0-32.0) pg MCHC 32.7 (31.0-37.0) g/dL RDW Std Deviation 43.4 (28.0-62.0) fl RDW Coeff of Janett 13 (11.0-15.0) % Plt Count 184 (150-400) K/uL MPV 10.20 (7.40-12.00) fL Neut % (Auto) 49.3 (48.0-80.0) % Lymph % (Auto) 39.7 (16.0-40.0) % Power % (Auto) 9.4 (0.0-15.0) % Eos % (Auto) 1.1 (0.0-7.0) % Baso % (Auto) 0.5 (0.0-1.5) % Neut # (Auto) 2.7 (1.4-5.7) K/uL Lymph # (Auto) 2.2 (0.6-2.4) K/uL Power # (Auto) 0.5 (0.0-0.8) K/uL Eos # (Auto) 0.1 (0.0-0.7) K/uL Baso # (Auto) 0.0 (0.0-0.1) K/uL Nucleated RBC % 0.0 /100WBC Nucleated RBCs # 0 K/uL Sodium (136-145) mmol/L Potassium (3.5-5.1) mmol/L Chloride (98-107) mmol/L Carbon Dioxide (21.0-32.0) mmol/L BUN (7.0-18.0) mg/dL Creatinine (0.6-1.0) mg/dL Est Cr Clr Drug Dosing mL/min Estimated GFR (MDRD) ml/min Glucose (74-106) mg/dL Calcium (8.5-10.1) mg/dL Phosphorus (2.6-4.7) mg/dL Magnesium (1.8-2.4) mg/dL Total Bilirubin (0.2-1.0) mg/dL AST (15-37) IU/L ALT (14-63) IU/L Alkaline Phosphatase (46-116) U/L Total Protein (6.4-8.2) g/dL Albumin (3.4-5.0) g/dL Globulin (2.6-4.0) g/dL Albumin/Globulin Ratio (0.9-1.6) Urine Color Urine Appearance Urine pH (5.0-8.0) Ur Specific [place] (1.001-1.035) Urine Protein (NEGATIVE) mg/dL Urine Glucose (UA) (NEGATIVE) mg/dL Urine Ketones (NEGATIVE) mg/dL Urine Occult Blood (NEGATIVE) Urine Nitrite (NEGATIVE) Urine Bilirubin (NEGATIVE) Urine Urobilinogen (<2.0) EU/dL Ur Leukocyte Esterase (NEGATIVE) Urine RBC (0-2/HPF) Urine WBC (0-5/HPF) Ur Epithelial Cells (NONE-FEW) Urine Bacteria (NEGATIVE) Ur Random Creatinine 81.6 mg/dL Ur Random Sodium 43.0 (40.0-220.0) mmol/L SARS-CoV-2 RNA (RADHAMES) NEGATIVE (NEGATIVE) 08/25/20 Range/Units 05:02 WBC (4.0-11.0) K/uL RBC (4.30-5.90) M/uL Hgb (12.0-16.0) g/dL Hct (36.0-46.0) % MCV (80.0-98.0) fL MCH (27.0-32.0) pg MCHC (31.0-37.0) g/dL RDW Std Deviation (28.0-62.0) fl RDW Coeff of Janett (11.0-15.0) % Plt Count (150-400) K/uL MPV (7.40-12.00) fL Neut % (Auto) (48.0-80.0) % Lymph % (Auto) (16.0-40.0) % Power % (Auto) (0.0-15.0) % Eos % (Auto) (0.0-7.0) % Baso % (Auto) (0.0-1.5) % Neut # (Auto) (1.4-5.7) K/uL Lymph # (Auto) (0.6-2.4) K/uL Power # (Auto) (0.0-0.8) K/uL Eos # (Auto) (0.0-0.7) K/uL Baso # (Auto) (0.0-0.1) K/uL Nucleated RBC % /100WBC Nucleated RBCs # K/uL Sodium 144 (136-145) mmol/L Potassium 3.7 (3.5-5.1) mmol/L Chloride 109 H (98-107) mmol/L Carbon Dioxide 24.1 (21.0-32.0) mmol/L BUN 31 H (7.0-18.0) mg/dL Creatinine 3.2 H (0.6-1.0) mg/dL Est Cr Clr Drug Dosing 13.26 mL/min Estimated GFR (MDRD) 14.7 ml/min Glucose 98 (74-106) mg/dL Calcium 8.1 L (8.5-10.1) mg/dL Phosphorus 4.9 H (2.6-4.7) mg/dL Magnesium 2.2 (1.8-2.4) mg/dL Total Bilirubin 0.3 (0.2-1.0) mg/dL AST 20 (15-37) IU/L ALT 26 (14-63) IU/L Alkaline Phosphatase 49 (46-116) U/L Total Protein 5.5 L (6.4-8.2) g/dL Albumin 2.6 L (3.4-5.0) g/dL Globulin 2.9 (2.6-4.0) g/dL Albumin/Globulin Ratio 0.9 (0.9-1.6) Urine Color Urine Appearance Urine pH (5.0-8.0) Ur Specific [place] (1.001-1.035) Urine Protein (NEGATIVE) mg/dL Urine Glucose (UA) (NEGATIVE) mg/dL Urine Ketones (NEGATIVE) mg/dL Urine Occult Blood (NEGATIVE) Urine Nitrite (NEGATIVE) Urine Bilirubin (NEGATIVE) Urine Urobilinogen (<2.0) EU/dL Ur Leukocyte Esterase (NEGATIVE) Urine RBC (0-2/HPF) Urine WBC (0-5/HPF) Ur Epithelial Cells (NONE-FEW) Urine Bacteria (NEGATIVE) Ur Random Creatinine mg/dL Ur Random Sodium (40.0-220.0) mmol/L SARS-CoV-2 RNA (RADHAMES) (NEGATIVE) Result Diagrams: 08/25/20 05:02 08/25/20 05:02 Sepsis Event Note - Focused Exam Vital Signs: Vital Signs Temp Pulse Resp BP BP Pulse Ox 08/25/20 11:54 36.6 C 57 L 16 117/56 L 97 08/25/20 08:17 36.6 C 65 14 105/61 97 08/25/20 07:47 36.6 C 65 14 105/61 97 08/25/20 04:07 36.3 C 55 L 16 98/53 L 95 - Problem List (1) ANN-MARIE (acute kidney injury) SNOMED Code(s): 65650864, 36909245 ICD Code: N17.9 - ACUTE KIDNEY FAILURE, UNSPECIFIED Status: Acute Current Visit: Yes (2) Pyelonephritis SNOMED Code(s): 71532564 ICD Code: N12 - TUBULO-INTERSTITIAL NEPHRITIS, NOT SPCF ACUTE OR CHRONIC Status: Acute Current Visit: Yes (3) Vaginal candidiasis SNOMED Code(s): 06041363 ICD Code: B37.3 - CANDIDIASIS OF VULVA AND VAGINA Status: Acute Current Visit: Yes Orders Last 24hrs: Active Orders 24 hr Category Date Time Status Patient Status [ADT] Routine ADT 08/24/20 18:10 Active Oxygen Therapy [RC] PRN Care 08/24/20 19:03 Active Up ad Isrrael [RC] ASDIRECTED Care 08/24/20 19:03 Active VTE/DVT Education [RC] PER UNIT ROUTINE Care 08/24/20 19:03 Active Vital Signs [RC] Q4H Care 08/24/20 19:03 Active Regular Diet [DIET] Diet 08/24/20 Dinner Active CBC WITH AUTO DIFF [HEME] AM Lab 08/26/20 05:11 Ordered CBC WITH AUTO DIFF [HEME] AM Lab 08/27/20 05:11 Ordered COMPREHENSIVE METABOLIC PN,CMP [CHEM] AM Lab 08/26/20 05:11 Ordered COMPREHENSIVE METABOLIC PN,CMP [CHEM] AM Lab 08/27/20 05:11 Ordered CULTURE BLOOD [BC] Stat Lab 08/24/20 19:38 Received CULTURE BLOOD [BC] Stat Lab 08/24/20 19:43 Received CULTURE URINE [RM] Stat Lab 08/24/20 16:31 Received MAGNESIUM [CHEM] AM Lab 08/26/20 05:11 Ordered MAGNESIUM [CHEM] AM Lab 08/27/20 05:11 Ordered PHOSPHORUS [CHEM] AM Lab 08/26/20 05:11 Ordered PHOSPHORUS [CHEM] AM Lab 08/27/20 05:11 Ordered Acetaminophen [TylenoL] Med 08/24/20 19:03 Active 650 mg PO Q4H PRN Fluconazole [Diflucan] Med 08/28/20 09:00 Active 150 mg PO ONETIME Heparin Sodium Med 08/25/20 05:30 Active 5,000 units SUBCUT Q8H Lactated Ringers [Ringers, Lactated] 1,000 ml Med 08/24/20 20:30 Active IV ASDIRECTED Ondansetron [Zofran ODT] Med 08/24/20 19:03 Active 4 mg PO Q4H PRN Pantoprazole [ProTONIX IV] 40 mg Med 08/24/20 19:15 Active Sodium Chloride 0.9% [Normal Saline] 10 ml IV Q24H [id number] [Rocephin] 1 gm Med 08/24/20 19:15 Active Sodium Chloride 0.9% [Normal Saline] 50 ml IV Q24H Blood Culture x2 Reflex Set [OM.PC] Stat Oth 08/24/20 19:03 Ordered Resuscitation Status Routine Resus Stat 08/24/20 19:03 Ordered Medication Orders Acetaminophen (Tylenol) 650 mg PO Q4H PRN PRN Reason: Pain (Mild 1-3)/fever Fluconazole (Diflucan) 150 mg PO ONETIME [facility] Stop: 08/28/20 09:30 Heparin Sodium (Porcine) (Heparin Sodium) 5,000 units SUBCUT Q8H [facility] Last Admin: 08/25/20 05:42 Dose: 5,000 units Documented by: PROFLUC Pantoprazole Sodium 40 mg/ (Sodium Chloride) 10 mls @ 300 mls/hr IV Q24H [facility] Last Admin: 08/24/20 21:05 Dose: 300 mls/hr Documented by: PROFLUC Ceftriaxone Sodium 1 gm/ (Sodium Chloride) 50 mls @ 100 mls/hr IV Q24H [facility] Last Admin: 08/24/20 21:07 Dose: Not Given Documented by: PROFLUC Lactated Ringer's (Ringers, Lactated) 1,000 mls @ 125 mls/hr IV ASDIRECTED [facility] Last Admin: 08/25/20 07:43 Dose: 125 mls/hr Documented by: MIGEL Cosigned by: [id number] Infusion: 08/25/20 07:20 Dose: 125 mls/hr Documented by: MIGEL Cosigned by: [id number] Admin: 08/24/20 23:20 Dose: 125 mls/hr Documented by: PROFLUC Ondansetron HCl (Zofran Odt) 4 mg PO Q4H PRN PRN Reason: nausea, able to take PO Assessment/Plan Comment:: I performed a history and physical exam of the patient and discussed management with resident. I have reviewed the residents note and agree with documented findings and plan unless otherwise specified in my note.
[2020-08-24] MEDS: Pantoprazole 40 MG in Sodium Chloride 0.9% 10 ML IV SCH (21:05)
[2020-08-24] MEDS: Heparin Sodium 5,000 Units/ML Vial SUBCUT SCH (21:06)
[2020-08-24] MEDS: cefTRIAXone 1 GM in Sodium Chloride 0.9% 50 ML IV SCH (21:07)
[2020-08-24] MEDS: Lactated Ringers 1,000 ML IV SCH (23:20)
[2020-08-25] MEDS: Heparin Sodium 5,000 Units/ML Vial SUBCUT SCH ×4 (05:42→21:07)
[2020-08-25 06:47] LABS: CARBON DIOXIDE,CO2 24.1 mmol/L (21.0-32.0); POTASSIUM,K 3.7 mmol/L (3.5-5.1)
[2020-08-25] MEDS: Lactated Ringers 1,000 ML IV SCH ×2 (07:43→16:55)
[2020-08-25] MEDS ORDERED: Fluconazole 150 MG Tab PO ONE (09:00)
[2020-08-25] MEDS ORDERED: Lactated Ringers 1,000 ML IV ONE (11:48)
--- NOTE | 2020-08-25 12:00 | PCM.PN ---
<Joanna Love - Last Filed: 08/25/20 13:04> - General Info Date of Service: 08/25/20 - Review of Systems General: Reports: No Symptoms HEENT: Reports: No Symptoms Pulmonary: Reports: No Symptoms Cardiovascular: Reports: No Symptoms Gastrointestinal: Reports: No Symptoms Genitourinary: Reports: Flank Pain. Denies: Dysuria, Frequency, Burning, Pain, Urgency, Incontinence, Hematuria, Retention (03/06) Musculoskeletal: Reports: No Symptoms Skin: Reports: No Symptoms Neurological: Reports: No Symptoms Psychiatric: Reports: No Symptoms - Patient Data Vitals - Most Recent: Last Vital Signs Temp 97.9 F 08/25/20 08:17 Pulse 65 08/25/20 08:17 Resp 14 08/25/20 08:17 BP 105/61 08/25/20 08:17 Pulse Ox 97 08/25/20 08:17 Weight - Most Recent: 57.606 kg I&O - Last 24 Hours: Intake & Output 08/24/20 08/25/20 08/25/20 22:59 06:59 14:59 Intake Total 200 Balance 200 Lab Results Last 24 Hours: Laboratory Results - last 24 hr 08/24/20 08/24/20 08/24/20 Range/Units 15:10 15:10 16:31 WBC 10.50 (4.0-11.0) K/uL RBC 4.99 (4.30-5.90) M/uL Hgb 15.3 (12.0-16.0) g/dL Hct 46.2 H (36.0-46.0) % MCV 92.6 (80.0-98.0) fL MCH 30.7 (27.0-32.0) pg MCHC 33.1 (31.0-37.0) g/dL RDW Std Deviation 43.0 (28.0-62.0) fl RDW Coeff of Janett 13 (11.0-15.0) % Plt Count 204 (150-400) K/uL MPV 9.80 (7.40-12.00) fL Neut % (Auto) 70.6 (48.0-80.0) % Lymph % (Auto) 20.2 (16.0-40.0) % [place] % (Auto) 8.3 (0.0-15.0) % Eos % (Auto) 0.6 (0.0-7.0) % Baso % (Auto) 0.3 (0.0-1.5) % Neut # (Auto) 7.4 H (1.4-5.7) K/uL Lymph # (Auto) 2.1 (0.6-2.4) K/uL [place] # (Auto) 0.9 H (0.0-0.8) K/uL Eos # (Auto) 0.1 (0.0-0.7) K/uL Baso # (Auto) 0.0 (0.0-0.1) K/uL Nucleated RBC % 0.0 /100WBC Nucleated RBCs # 0 K/uL Sodium 139 (136-145) mmol/L Potassium 3.8 (3.5-5.1) mmol/L Chloride 105 (98-107) mmol/L Carbon Dioxide 24.6 (21.0-32.0) mmol/L BUN 32 H (7.0-18.0) mg/dL Creatinine 3.8 H (0.6-1.0) mg/dL Est Cr Clr Drug Dosing 11.17 mL/min Estimated GFR (MDRD) 12.1 ml/min Glucose 113 H (74-106) mg/dL Calcium 8.9 (8.5-10.1) mg/dL Phosphorus (2.6-4.7) mg/dL Magnesium (1.8-2.4) mg/dL Total Bilirubin (0.2-1.0) mg/dL AST (15-37) IU/L ALT (14-63) IU/L Alkaline Phosphatase (46-116) U/L Total Protein (6.4-8.2) g/dL Albumin (3.4-5.0) g/dL Globulin (2.6-4.0) g/dL Albumin/Globulin Ratio (0.9-1.6) Urine Color YELLOW Urine Appearance CLOUDY Urine pH 5.5 (5.0-8.0) Ur Specific [place] 1.010 (1.001-1.035) Urine Protein NEGATIVE (NEGATIVE) mg/dL Urine Glucose (UA) NEGATIVE (NEGATIVE) mg/dL Urine Ketones NEGATIVE (NEGATIVE) mg/dL Urine Occult Blood MODERATE H (NEGATIVE) Urine Nitrite NEGATIVE (NEGATIVE) Urine Bilirubin NEGATIVE (NEGATIVE) Urine Urobilinogen 0.2 (<2.0) EU/dL Ur Leukocyte Esterase MODERATE H (NEGATIVE) Urine RBC 3-6 (0-2/HPF) Urine WBC 5-10 (0-5/HPF) Ur Epithelial Cells RARE (NONE-FEW) Urine Bacteria FEW (NEGATIVE) Ur Random Creatinine mg/dL Ur Random Sodium (40.0-220.0) mmol/L SARS-CoV-2 RNA (RADHAMES) (NEGATIVE) 08/24/20 08/24/20 08/25/20 Range/Units 16:31 17:05 05:02 WBC 5.52 (4.0-11.0) K/uL RBC 4.18 L (4.30-5.90) M/uL Hgb 12.7 (12.0-16.0) g/dL Hct 38.8 (36.0-46.0) % MCV 92.8 (80.0-98.0) fL MCH 30.4 (27.0-32.0) pg MCHC 32.7 (31.0-37.0) g/dL RDW Std Deviation 43.4 (28.0-62.0) fl RDW Coeff of Janett 13 (11.0-15.0) % Plt Count 184 (150-400) K/uL MPV 10.20 (7.40-12.00) fL Neut % (Auto) 49.3 (48.0-80.0) % Lymph % (Auto) 39.7 (16.0-40.0) % [place] % (Auto) 9.4 (0.0-15.0) % Eos % (Auto) 1.1 (0.0-7.0) % Baso % (Auto) 0.5 (0.0-1.5) % Neut # (Auto) 2.7 (1.4-5.7) K/uL Lymph # (Auto) 2.2 (0.6-2.4) K/uL [place] # (Auto) 0.5 (0.0-0.8) K/uL Eos # (Auto) 0.1 (0.0-0.7) K/uL Baso # (Auto) 0.0 (0.0-0.1) K/uL Nucleated RBC % 0.0 /100WBC Nucleated RBCs # 0 K/uL Sodium (136-145) mmol/L Potassium (3.5-5.1) mmol/L Chloride (98-107) mmol/L Carbon Dioxide (21.0-32.0) mmol/L BUN (7.0-18.0) mg/dL Creatinine (0.6-1.0) mg/dL Est Cr Clr Drug Dosing mL/min Estimated GFR (MDRD) ml/min Glucose (74-106) mg/dL Calcium (8.5-10.1) mg/dL Phosphorus (2.6-4.7) mg/dL Magnesium (1.8-2.4) mg/dL Total Bilirubin (0.2-1.0) mg/dL AST (15-37) IU/L ALT (14-63) IU/L Alkaline Phosphatase (46-116) U/L Total Protein (6.4-8.2) g/dL Albumin (3.4-5.0) g/dL Globulin (2.6-4.0) g/dL Albumin/Globulin Ratio (0.9-1.6) Urine Color Urine Appearance Urine pH (5.0-8.0) Ur Specific [place] (1.001-1.035) Urine Protein (NEGATIVE) mg/dL Urine Glucose (UA) (NEGATIVE) mg/dL Urine Ketones (NEGATIVE) mg/dL Urine Occult Blood (NEGATIVE) Urine Nitrite (NEGATIVE) Urine Bilirubin (NEGATIVE) Urine Urobilinogen (<2.0) EU/dL Ur Leukocyte Esterase (NEGATIVE) Urine RBC (0-2/HPF) Urine WBC (0-5/HPF) Ur Epithelial Cells (NONE-FEW) Urine Bacteria (NEGATIVE) Ur Random Creatinine 81.6 mg/dL Ur Random Sodium 43.0 (40.0-220.0) mmol/L SARS-CoV-2 RNA (RADHAMES) NEGATIVE (NEGATIVE) 08/25/20 Range/Units 05:02 WBC (4.0-11.0) K/uL RBC (4.30-5.90) M/uL Hgb (12.0-16.0) g/dL Hct (36.0-46.0) % MCV (80.0-98.0) fL MCH (27.0-32.0) pg MCHC (31.0-37.0) g/dL RDW Std Deviation (28.0-62.0) fl RDW Coeff of Janett (11.0-15.0) % Plt Count (150-400) K/uL MPV (7.40-12.00) fL Neut % (Auto) (48.0-80.0) % Lymph % (Auto) (16.0-40.0) % [place] % (Auto) (0.0-15.0) % Eos % (Auto) (0.0-7.0) % Baso % (Auto) (0.0-1.5) % Neut # (Auto) (1.4-5.7) K/uL Lymph # (Auto) (0.6-2.4) K/uL [place] # (Auto) (0.0-0.8) K/uL Eos # (Auto) (0.0-0.7) K/uL Baso # (Auto) (0.0-0.1) K/uL Nucleated RBC % /100WBC Nucleated RBCs # K/uL Sodium 144 (136-145) mmol/L Potassium 3.7 (3.5-5.1) mmol/L Chloride 109 H (98-107) mmol/L Carbon Dioxide 24.1 (21.0-32.0) mmol/L BUN 31 H (7.0-18.0) mg/dL Creatinine 3.2 H (0.6-1.0) mg/dL Est Cr Clr Drug Dosing 13.26 mL/min Estimated GFR (MDRD) 14.7 ml/min Glucose 98 (74-106) mg/dL Calcium 8.1 L (8.5-10.1) mg/dL Phosphorus 4.9 H (2.6-4.7) mg/dL Magnesium 2.2 (1.8-2.4) mg/dL Total Bilirubin 0.3 (0.2-1.0) mg/dL AST 20 (15-37) IU/L ALT 26 (14-63) IU/L Alkaline Phosphatase 49 (46-116) U/L Total Protein 5.5 L (6.4-8.2) g/dL Albumin 2.6 L (3.4-5.0) g/dL Globulin 2.9 (2.6-4.0) g/dL Albumin/Globulin Ratio 0.9 (0.9-1.6) Urine Color Urine Appearance Urine pH (5.0-8.0) Ur Specific [place] (1.001-1.035) Urine Protein (NEGATIVE) mg/dL Urine Glucose (UA) (NEGATIVE) mg/dL Urine Ketones (NEGATIVE) mg/dL Urine Occult Blood (NEGATIVE) Urine Nitrite (NEGATIVE) Urine Bilirubin (NEGATIVE) Urine Urobilinogen (<2.0) EU/dL Ur Leukocyte Esterase (NEGATIVE) Urine RBC (0-2/HPF) Urine WBC (0-5/HPF) Ur Epithelial Cells (NONE-FEW) Urine Bacteria (NEGATIVE) Ur Random Creatinine mg/dL Ur Random Sodium (40.0-220.0) mmol/L SARS-CoV-2 RNA (RADHAMES) (NEGATIVE) Med Orders - Current: Current Medications Acetaminophen (Tylenol) 650 mg PO Q4H PRN PRN Reason: Pain (Mild 1-3)/fever Fluconazole (Diflucan) 150 mg PO ONETIME [facility] Stop: 08/28/20 09:30 Heparin Sodium (Porcine) (Heparin Sodium) 5,000 units SUBCUT Q8H [facility] Last Admin: 08/25/20 05:42 Dose: 5,000 units Documented by: Pantoprazole Sodium 40 mg/ (Sodium Chloride) 10 mls @ 300 mls/hr IV Q24H [facility] Last Admin: 08/24/20 21:05 Dose: 300 mls/hr Documented by: Ceftriaxone Sodium 1 gm/ (Sodium Chloride) 50 mls @ 100 mls/hr IV Q24H [facility] Last Admin: 08/24/20 21:07 Dose: Not Given Documented by: Lactated Ringer's (Ringers, Lactated) 1,000 mls @ 125 mls/hr IV ASDIRECTED [facility] Last Admin: 08/25/20 07:43 Dose: 125 mls/hr Documented by: Lactated Ringer's (Ringers, Lactated) 1,000 mls @ 999 mls/hr IV .BOLUS ONE Stop: 08/25/20 12:48 Ondansetron HCl (Zofran Odt) 4 mg PO Q4H PRN PRN Reason: nausea, able to take PO Discontinued Medications Ceftriaxone Sodium (Rocephin) 1 gm IVPUSH ONETIME ONE Stop: 08/24/20 17:10 Last Admin: 08/24/20 17:14 Dose: Not Given Documented by: Fluconazole (Diflucan 40 Mg/Ml Susp) 100 mg PO DAILY [facility] Stop: 08/31/20 19:31 Last Admin: 08/24/20 22:28 Dose: 100 mg Documented by: Fluconazole (Diflucan) 150 mg PO DAILY ONE Stop: 08/25/20 09:01 Last Admin: 08/25/20 09:28 Dose: 150 mg Documented by: Heparin Sodium (Porcine) (Heparin Sodium) 5,000 units SUBCUT Q8H [facility] Last Admin: 08/25/20 06:29 Dose: Not Given Documented by: Ceftriaxone Sodium/Dextrose 1 (gm/ Premix) 50 mls @ 100 mls/hr IV ONETIME ONE Stop: 08/24/20 17:42 Last Admin: 08/24/20 17:20 Dose: 100 mls/hr Documented by: Lactated Ringer's (Ringers, Lactated) 1,000 mls @ 999 mls/hr IV BOLUS ONE Stop: 08/24/20 20:03 Last Admin: 08/24/20 21:06 Dose: 999 mls/hr Documented by: Meclizine HCl (Antivert) 50 mg PO ONETIME ONE Stop: 08/24/20 14:54 Last Admin: 08/24/20 15:09 Dose: 50 mg Documented by: - Exam General: Alert, Oriented HEENT: Pupils Equal, Pupils Reactive, EOMI, Mucous Membr. Moist/[place] Neck: Supple, Trachea Midline, No JVD, No Thyromegaly Lungs: Clear to Auscultation, Normal Respiratory Effort Cardiovascular: Regular Rate, Regular Rhythm GI/Abdominal Exam: Normal Bowel Sounds, Soft, Non-Tender (Female) Exam: Normal External Exam Sepsis Event Note - Evaluation Sepsis Screening Result: No Definite Risk - Focused Exam Vital Signs: Vital Signs Temp Pulse Resp BP Pulse Ox 08/25/20 08:17 97.9 F 65 14 105/61 97 08/25/20 07:47 98 F 65 14 105/61 97 08/25/20 04:07 97.4 F 55 L 16 98/53 L 95 08/25/20 00:01 97.1 F 63 16 95/55 L 93 L - Problem List & Annotations (1) Vaginal candidiasis SNOMED Code(s): 05951423 Code(s): B37.3 - CANDIDIASIS OF VULVA AND VAGINA Status: Acute Current Visit: Yes (2) Pyelonephritis SNOMED Code(s): 38826060 Code(s): N12 - TUBULO-INTERSTITIAL NEPHRITIS, NOT SPCF ACUTE OR CHRONIC Status: Acute Current Visit: Yes (3) ANN-MARIE (acute kidney injury) SNOMED Code(s): 57508828, 32307324 Code(s): N17.9 - ACUTE KIDNEY FAILURE, UNSPECIFIED Status: Acute Current Visit: Yes - My Orders Last 24 Hours: My Active Orders 08/24/20 Dinner Regular Diet [DIET] 08/24/20 16:31 CULTURE URINE [RM] Stat 08/24/20 19:03 Oxygen Therapy [RC] PRN Up ad Isrrael [RC] ASDIRECTED VTE/DVT Education [RC] PER UNIT ROUTINE Vital Signs [RC] Q4H Acetaminophen [TylenoL] 650 mg PO Q4H PRN Ondansetron [Zofran ODT] 4 mg PO Q4H PRN Blood Culture x2 Reflex Set [OM.PC] Stat Resuscitation Status Routine 08/24/20 19:15 Pantoprazole [ProTONIX IV] 40 mg Sodium Chloride 0.9% [Normal Saline] 10 ml IV Q24H cefTRIAXone [Rocephin] 1 gm Sodium Chloride 0.9% [Normal Saline] 50 ml IV Q24H 08/24/20 19:38 CULTURE BLOOD [BC] Stat 08/24/20 19:43 CULTURE BLOOD [BC] Stat 08/24/20 20:30 Lactated Ringers [Ringers, Lactated] 1,000 ml IV ASDIRECTED 08/25/20 05:30 Heparin Sodium 5,000 units SUBCUT Q8H 08/25/20 11:48 Lactated Ringers [Ringers, Lactated] 1,000 ml IV .BOLUS 08/26/20 05:11 CBC WITH AUTO DIFF [HEME] AM COMPREHENSIVE METABOLIC PN,CMP [CHEM] AM MAGNESIUM [CHEM] AM PHOSPHORUS [CHEM] AM 08/27/20 05:11 CBC WITH AUTO DIFF [HEME] AM COMPREHENSIVE METABOLIC PN,CMP [CHEM] AM MAGNESIUM [CHEM] AM PHOSPHORUS [CHEM] AM - Plan Plan:: 59 y/o F with Pyelonephritis, ANN-MARIE and Vaginal Candidiasis 1. Pyelonephritis: Rocehpin 7-10 days, Fluids LR Bolus with 1L maintenance at 125cc/hr. Zofran for nausea, Tylenol for Pain. Bc/ UC 2.ANN-MARIE: elevated BUN/Cr, Trend daily with morning labs, Fluids as mentioned above, urine electrolytes Fene calc 3.Vaginal Candidasis: recent abx use, h/o prev infection similiar. Fluconazole 100 mg po daily 7 days. activity up ad/isrrael, Heparin 500 SubQ for DVT ppx, Pantoprazole 40mg daily GI ppx. <Glynn Tanner - Last Filed: 08/25/20 13:10> - General Info Subjective Update: seen at bedside, comfortable, no fevers, chills - Patient Data Vitals - Most Recent: Last Vital Signs Temp 36.6 C 08/25/20 11:54 Pulse 57 L 08/25/20 11:54 Resp 16 08/25/20 11:54 BP 117/56 L 08/25/20 11:54 Pulse Ox 97 08/25/20 11:54 I&O - Last 24 Hours: Intake & Output 08/24/20 08/25/20 08/25/20 22:59 06:59 14:59 Intake Total 200 Balance 200 Lab Results Last 24 Hours: Laboratory Results - last 24 hr 08/24/20 08/24/20 08/24/20 Range/Units 15:10 15:10 16:31 WBC 10.50 (4.0-11.0) K/uL RBC 4.99 (4.30-5.90) M/uL Hgb 15.3 (12.0-16.0) g/dL Hct 46.2 H (36.0-46.0) % MCV 92.6 (80.0-98.0) fL MCH 30.7 (27.0-32.0) pg MCHC 33.1 (31.0-37.0) g/dL RDW Std Deviation 43.0 (28.0-62.0) fl RDW Coeff of [place] 13 (11.0-15.0) % Plt Count 204 (150-400) K/uL MPV 9.80 (7.40-12.00) fL Neut % (Auto) 70.6 (48.0-80.0) % Lymph % (Auto) 20.2 (16.0-40.0) % [place] % (Auto) 8.3 (0.0-15.0) % Eos % (Auto) 0.6 (0.0-7.0) % Baso % (Auto) 0.3 (0.0-1.5) % Neut # (Auto) 7.4 H (1.4-5.7) K/uL Lymph # (Auto) 2.1 (0.6-2.4) K/uL [place] # (Auto) 0.9 H (0.0-0.8) K/uL Eos # (Auto) 0.1 (0.0-0.7) K/uL Baso # (Auto) 0.0 (0.0-0.1) K/uL Nucleated RBC % 0.0 /100WBC Nucleated RBCs # 0 K/uL Sodium 139 (136-145) mmol/L Potassium 3.8 (3.5-5.1) mmol/L Chloride 105 (98-107) mmol/L Carbon Dioxide 24.6 (21.0-32.0) mmol/L BUN 32 H (7.0-18.0) mg/dL Creatinine 3.8 H (0.6-1.0) mg/dL Est Cr Clr Drug Dosing 11.17 mL/min Estimated GFR (MDRD) 12.1 ml/min Glucose 113 H (74-106) mg/dL Calcium 8.9 (8.5-10.1) mg/dL Phosphorus (2.6-4.7) mg/dL Magnesium (1.8-2.4) mg/dL Total Bilirubin (0.2-1.0) mg/dL AST (15-37) IU/L ALT (14-63) IU/L Alkaline Phosphatase (46-116) U/L Total Protein (6.4-8.2) g/dL Albumin (3.4-5.0) g/dL Globulin (2.6-4.0) g/dL Albumin/Globulin Ratio (0.9-1.6) Urine Color YELLOW Urine Appearance CLOUDY Urine pH 5.5 (5.0-8.0) Ur Specific [place] 1.010 (1.001-1.035) Urine Protein NEGATIVE (NEGATIVE) mg/dL Urine Glucose (UA) NEGATIVE (NEGATIVE) mg/dL Urine Ketones NEGATIVE (NEGATIVE) mg/dL Urine Occult Blood MODERATE H (NEGATIVE) Urine Nitrite NEGATIVE (NEGATIVE) Urine Bilirubin NEGATIVE (NEGATIVE) Urine Urobilinogen 0.2 (<2.0) EU/dL Ur Leukocyte Esterase MODERATE H (NEGATIVE) Urine RBC 3-6 (0-2/HPF) Urine WBC 5-10 (0-5/HPF) Ur Epithelial Cells RARE (NONE-FEW) Urine Bacteria FEW (NEGATIVE) Ur Random Creatinine mg/dL Ur Random Sodium (40.0-220.0) mmol/L SARS-CoV-2 RNA (RADHAMES) (NEGATIVE) 08/24/20 08/24/20 08/25/20 Range/Units 16:31 17:05 05:02 WBC 5.52 (4.0-11.0) K/uL RBC 4.18 L (4.30-5.90) M/uL Hgb 12.7 (12.0-16.0) g/dL Hct 38.8 (36.0-46.0) % MCV 92.8 (80.0-98.0) fL MCH 30.4 (27.0-32.0) pg MCHC 32.7 (31.0-37.0) g/dL RDW Std Deviation 43.4 (28.0-62.0) fl RDW Coeff of [place] 13 (11.0-15.0) % Plt Count 184 (150-400) K/uL MPV 10.20 (7.40-12.00) fL Neut % (Auto) 49.3 (48.0-80.0) % Lymph % (Auto) 39.7 (16.0-40.0) % [place] % (Auto) 9.4 (0.0-15.0) % Eos % (Auto) 1.1 (0.0-7.0) % Baso % (Auto) 0.5 (0.0-1.5) % Neut # (Auto) 2.7 (1.4-5.7) K/uL Lymph # (Auto) 2.2 (0.6-2.4) K/uL [place] # (Auto) 0.5 (0.0-0.8) K/uL Eos # (Auto) 0.1 (0.0-0.7) K/uL Baso # (Auto) 0.0 (0.0-0.1) K/uL Nucleated RBC % 0.0 /100WBC Nucleated RBCs # 0 K/uL Sodium (136-145) mmol/L Potassium (3.5-5.1) mmol/L Chloride (98-107) mmol/L Carbon Dioxide (21.0-32.0) mmol/L BUN (7.0-18.0) mg/dL Creatinine (0.6-1.0) mg/dL Est Cr Clr Drug Dosing mL/min Estimated GFR (MDRD) ml/min Glucose (74-106) mg/dL Calcium (8.5-10.1) mg/dL Phosphorus (2.6-4.7) mg/dL Magnesium (1.8-2.4) mg/dL Total Bilirubin (0.2-1.0) mg/dL AST (15-37) IU/L ALT (14-63) IU/L Alkaline Phosphatase (46-116) U/L Total Protein (6.4-8.2) g/dL Albumin (3.4-5.0) g/dL Globulin (2.6-4.0) g/dL Albumin/Globulin Ratio (0.9-1.6) Urine Color Urine Appearance Urine pH (5.0-8.0) Ur Specific [place] (1.001-1.035) Urine Protein (NEGATIVE) mg/dL Urine Glucose (UA) (NEGATIVE) mg/dL Urine Ketones (NEGATIVE) mg/dL Urine Occult Blood (NEGATIVE) Urine Nitrite (NEGATIVE) Urine Bilirubin (NEGATIVE) Urine Urobilinogen (<2.0) EU/dL Ur Leukocyte Esterase (NEGATIVE) Urine RBC (0-2/HPF) Urine WBC (0-5/HPF) Ur Epithelial Cells (NONE-FEW) Urine Bacteria (NEGATIVE) Ur Random Creatinine 81.6 mg/dL Ur Random Sodium 43.0 (40.0-220.0) mmol/L SARS-CoV-2 RNA (RADHAMES) NEGATIVE (NEGATIVE) 08/25/20 Range/Units 05:02 WBC (4.0-11.0) K/uL RBC (4.30-5.90) M/uL Hgb (12.0-16.0) g/dL Hct (36.0-46.0) % MCV (80.0-98.0) fL MCH (27.0-32.0) pg MCHC (31.0-37.0) g/dL RDW Std Deviation (28.0-62.0) fl RDW Coeff of Janett (11.0-15.0) % Plt Count (150-400) K/uL MPV (7.40-12.00) fL Neut % (Auto) (48.0-80.0) % Lymph % (Auto) (16.0-40.0) % [place] % (Auto) (0.0-15.0) % Eos % (Auto) (0.0-7.0) % Baso % (Auto) (0.0-1.5) % Neut # (Auto) (1.4-5.7) K/uL Lymph # (Auto) (0.6-2.4) K/uL [place] # (Auto) (0.0-0.8) K/uL Eos # (Auto) (0.0-0.7) K/uL Baso # (Auto) (0.0-0.1) K/uL Nucleated RBC % /100WBC Nucleated RBCs # K/uL Sodium 144 (136-145) mmol/L Potassium 3.7 (3.5-5.1) mmol/L Chloride 109 H (98-107) mmol/L Carbon Dioxide 24.1 (21.0-32.0) mmol/L BUN 31 H (7.0-18.0) mg/dL Creatinine 3.2 H (0.6-1.0) mg/dL Est Cr Clr Drug Dosing 13.26 mL/min Estimated GFR (MDRD) 14.7 ml/min Glucose 98 (74-106) mg/dL Calcium 8.1 L (8.5-10.1) mg/dL Phosphorus 4.9 H (2.6-4.7) mg/dL Magnesium 2.2 (1.8-2.4) mg/dL Total Bilirubin 0.3 (0.2-1.0) mg/dL AST 20 (15-37) IU/L ALT 26 (14-63) IU/L Alkaline Phosphatase 49 (46-116) U/L Total Protein 5.5 L (6.4-8.2) g/dL Albumin 2.6 L (3.4-5.0) g/dL Globulin 2.9 (2.6-4.0) g/dL Albumin/Globulin Ratio 0.9 (0.9-1.6) Urine Color Urine Appearance Urine pH (5.0-8.0) Ur Specific [place] (1.001-1.035) Urine Protein (NEGATIVE) mg/dL Urine Glucose (UA) (NEGATIVE) mg/dL Urine Ketones (NEGATIVE) mg/dL Urine Occult Blood (NEGATIVE) Urine Nitrite (NEGATIVE) Urine Bilirubin (NEGATIVE) Urine Urobilinogen (<2.0) EU/dL Ur Leukocyte Esterase (NEGATIVE) Urine RBC (0-2/HPF) Urine WBC (0-5/HPF) Ur Epithelial Cells (NONE-FEW) Urine Bacteria (NEGATIVE) Ur Random Creatinine mg/dL Ur Random Sodium (40.0-220.0) mmol/L SARS-CoV-2 RNA (RADHAMES) (NEGATIVE) Med Orders - Current: Current Medications Acetaminophen (Tylenol) 650 mg PO Q4H PRN PRN Reason: Pain (Mild 1-3)/fever Fluconazole (Diflucan) 150 mg PO ONETIME [facility] Stop: 08/28/20 09:30 Heparin Sodium (Porcine) (Heparin Sodium) 5,000 units SUBCUT Q8H [facility] Last Admin: 08/25/20 05:42 Dose: 5,000 units Documented by: Pantoprazole Sodium 40 mg/ (Sodium Chloride) 10 mls @ 300 mls/hr IV Q24H [facility] Last Admin: 08/24/20 21:05 Dose: 300 mls/hr Documented by: Ceftriaxone Sodium 1 gm/ (Sodium Chloride) 50 mls @ 100 mls/hr IV Q24H [facility] Last Admin: 08/24/20 21:07 Dose: Not Given Documented by: Lactated Ringer's (Ringers, Lactated) 1,000 mls @ 125 mls/hr IV ASDIRECTED [facility] Last Admin: 08/25/20 07:43 Dose: 125 mls/hr Documented by: Ondansetron HCl (Zofran Odt) 4 mg PO Q4H PRN PRN Reason: nausea, able to take PO Discontinued Medications Ceftriaxone Sodium (Rocephin) 1 gm IVPUSH ONETIME ONE Stop: 08/24/20 17:10 Last Admin: 08/24/20 17:14 Dose: Not Given Documented by: Fluconazole (Diflucan 40 Mg/Ml Susp) 100 mg PO DAILY [facility] Stop: 08/31/20 19:31 Last Admin: 08/24/20 22:28 Dose: 100 mg Documented by: Fluconazole (Diflucan) 150 mg PO DAILY ONE Stop: 08/25/20 09:01 Last Admin: 08/25/20 09:28 Dose: 150 mg Documented by: Heparin Sodium (Porcine) (Heparin Sodium) 5,000 units SUBCUT Q8H [facility] Last Admin: 08/25/20 06:29 Dose: Not Given Documented by: Ceftriaxone Sodium/Dextrose 1 (gm/ Premix) 50 mls @ 100 mls/hr IV ONETIME ONE Stop: 08/24/20 17:42 Last Admin: 08/24/20 17:20 Dose: 100 mls/hr Documented by: Lactated Ringer's (Ringers, Lactated) 1,000 mls @ 999 mls/hr IV BOLUS ONE Stop: 08/24/20 20:03 Last Admin: 08/24/20 21:06 Dose: 999 mls/hr Documented by: Lactated Ringer's (Ringers, Lactated) 1,000 mls @ 999 mls/hr IV .BOLUS ONE Stop: 08/25/20 12:48 Last Admin: 08/25/20 12:25 Dose: 999 mls/hr Documented by: Meclizine HCl (Antivert) 50 mg PO ONETIME ONE Stop: 08/24/20 14:54 Last Admin: 08/24/20 15:09 Dose: 50 mg Documented by: Sepsis Event Note - Focused Exam Vital Signs: Vital Signs Temp Pulse Resp BP BP Pulse Ox 08/25/20 11:54 36.6 C 57 L 16 117/56 L 97 08/25/20 08:17 36.6 C 65 14 105/61 97 08/25/20 07:47 36.6 C 65 14 105/61 97 08/25/20 04:07 36.3 C 55 L 16 98/53 L 95 - Problem List & Annotations (1) ANN-MARIE (acute kidney injury) SNOMED Code(s): 12808355, 08053772 Code(s): N17.9 - ACUTE KIDNEY FAILURE, UNSPECIFIED Status: Acute Current Visit: Yes (2) Pyelonephritis SNOMED Code(s): 49111195 Code(s): N12 - TUBULO-INTERSTITIAL NEPHRITIS, NOT SPCF ACUTE OR CHRONIC Status: Acute Current Visit: Yes (3) Vaginal candidiasis SNOMED Code(s): 99858363 Code(s): B37.3 - CANDIDIASIS OF VULVA AND VAGINA Status: Acute Current Visit: Yes - Problem List Review Problem List Initiated/Reviewed/Updated: Yes - My Orders Last 24 Hours: My Active Orders 08/28/20 09:00 Fluconazole [Diflucan] 150 mg PO ONETIME - Plan Plan:: I have seen and evaluated the patient and agree with the residents note unless specified in my note
--- NOTE | 2020-08-25 14:50 | PCM.PN ---
<Joanna Love - Last Filed: 08/25/20 14:50> - General Info Date of Service: 08/25/20 Subjective Update: Pt is a 59 y/o F being treated for Pyelonephritis secondary to UTI with additonal comp,yulia of vaginal discomfort. Patient states he pain has imrpived, slept well overnight. Denies any n/v/d,dysuria, fever, chills. No concerns this morning. Was seen at bedside while eating her breakfast. Functional Status: Reports: Pain Controlled - Review of Systems General: Reports: No Symptoms HEENT: Reports: No Symptoms Pulmonary: Reports: No Symptoms Cardiovascular: Reports: No Symptoms Gastrointestinal: Reports: No Symptoms Genitourinary: Reports: Flank Pain (states now a -03/06, from 05/06 lastnight ), Other (no vag discharge or lesions). Denies: Dysuria, Frequency, Burning, Pain, Urgency, Incontinence, Hematuria Skin: Reports: No Symptoms Neurological: Reports: No Symptoms Psychiatric: Reports: No Symptoms - Patient Data Vitals - Most Recent: Last Vital Signs Temp 98 F 08/25/20 11:54 Pulse 57 L 08/25/20 11:54 Resp 16 08/25/20 11:54 BP 117/56 L 08/25/20 11:54 Pulse Ox 97 08/25/20 11:54 Weight - Most Recent: 57.606 kg I&O - Last 24 Hours: Intake & Output 08/24/20 08/25/20 08/25/20 22:59 06:59 14:59 Intake Total 200 Balance 200 Lab Results Last 24 Hours: Laboratory Results - last 24 hr 08/24/20 08/24/20 08/24/20 Range/Units 15:10 15:10 16:31 WBC 10.50 (4.0-11.0) K/uL RBC 4.99 (4.30-5.90) M/uL Hgb 15.3 (12.0-16.0) g/dL Hct 46.2 H (36.0-46.0) % MCV 92.6 (80.0-98.0) fL MCH 30.7 (27.0-32.0) pg MCHC 33.1 (31.0-37.0) g/dL RDW Std Deviation 43.0 (28.0-62.0) fl RDW Coeff of Janett 13 (11.0-15.0) % Plt Count 204 (150-400) K/uL MPV 9.80 (7.40-12.00) fL Neut % (Auto) 70.6 (48.0-80.0) % Lymph % (Auto) 20.2 (16.0-40.0) % [place] % (Auto) 8.3 (0.0-15.0) % Eos % (Auto) 0.6 (0.0-7.0) % Baso % (Auto) 0.3 (0.0-1.5) % Neut # (Auto) 7.4 H (1.4-5.7) K/uL Lymph # (Auto) 2.1 (0.6-2.4) K/uL [place] # (Auto) 0.9 H (0.0-0.8) K/uL Eos # (Auto) 0.1 (0.0-0.7) K/uL Baso # (Auto) 0.0 (0.0-0.1) K/uL Nucleated RBC % 0.0 /100WBC Nucleated RBCs # 0 K/uL Sodium 139 (136-145) mmol/L Potassium 3.8 (3.5-5.1) mmol/L Chloride 105 (98-107) mmol/L Carbon Dioxide 24.6 (21.0-32.0) mmol/L BUN 32 H (7.0-18.0) mg/dL Creatinine 3.8 H (0.6-1.0) mg/dL Est Cr Clr Drug Dosing 11.17 mL/min Estimated GFR (MDRD) 12.1 ml/min Glucose 113 H (74-106) mg/dL Calcium 8.9 (8.5-10.1) mg/dL Phosphorus (2.6-4.7) mg/dL Magnesium (1.8-2.4) mg/dL Total Bilirubin (0.2-1.0) mg/dL AST (15-37) IU/L ALT (14-63) IU/L Alkaline Phosphatase (46-116) U/L Total Protein (6.4-8.2) g/dL Albumin (3.4-5.0) g/dL Globulin (2.6-4.0) g/dL Albumin/Globulin Ratio (0.9-1.6) Urine Color YELLOW Urine Appearance CLOUDY Urine pH 5.5 (5.0-8.0) Ur Specific [place] 1.010 (1.001-1.035) Urine Protein NEGATIVE (NEGATIVE) mg/dL Urine Glucose (UA) NEGATIVE (NEGATIVE) mg/dL Urine Ketones NEGATIVE (NEGATIVE) mg/dL Urine Occult Blood MODERATE H (NEGATIVE) Urine Nitrite NEGATIVE (NEGATIVE) Urine Bilirubin NEGATIVE (NEGATIVE) Urine Urobilinogen 0.2 (<2.0) EU/dL Ur Leukocyte Esterase MODERATE H (NEGATIVE) Urine RBC 3-6 (0-2/HPF) Urine WBC 5-10 (0-5/HPF) Ur Epithelial Cells RARE (NONE-FEW) Urine Bacteria FEW (NEGATIVE) Ur Random Creatinine mg/dL Ur Random Sodium (40.0-220.0) mmol/L SARS-CoV-2 RNA (RADHAMES) (NEGATIVE) 08/24/20 08/24/20 08/25/20 Range/Units 16:31 17:05 05:02 WBC 5.52 (4.0-11.0) K/uL RBC 4.18 L (4.30-5.90) M/uL Hgb 12.7 (12.0-16.0) g/dL Hct 38.8 (36.0-46.0) % MCV 92.8 (80.0-98.0) fL MCH 30.4 (27.0-32.0) pg MCHC 32.7 (31.0-37.0) g/dL RDW Std Deviation 43.4 (28.0-62.0) fl RDW Coeff of Janett 13 (11.0-15.0) % Plt Count 184 (150-400) K/uL MPV 10.20 (7.40-12.00) fL Neut % (Auto) 49.3 (48.0-80.0) % Lymph % (Auto) 39.7 (16.0-40.0) % [place] % (Auto) 9.4 (0.0-15.0) % Eos % (Auto) 1.1 (0.0-7.0) % Baso % (Auto) 0.5 (0.0-1.5) % Neut # (Auto) 2.7 (1.4-5.7) K/uL Lymph # (Auto) 2.2 (0.6-2.4) K/uL [place] # (Auto) 0.5 (0.0-0.8) K/uL Eos # (Auto) 0.1 (0.0-0.7) K/uL Baso # (Auto) 0.0 (0.0-0.1) K/uL Nucleated RBC % 0.0 /100WBC Nucleated RBCs # 0 K/uL Sodium (136-145) mmol/L Potassium (3.5-5.1) mmol/L Chloride (98-107) mmol/L Carbon Dioxide (21.0-32.0) mmol/L BUN (7.0-18.0) mg/dL Creatinine (0.6-1.0) mg/dL Est Cr Clr Drug Dosing mL/min Estimated GFR (MDRD) ml/min Glucose (74-106) mg/dL Calcium (8.5-10.1) mg/dL Phosphorus (2.6-4.7) mg/dL Magnesium (1.8-2.4) mg/dL Total Bilirubin (0.2-1.0) mg/dL AST (15-37) IU/L ALT (14-63) IU/L Alkaline Phosphatase (46-116) U/L Total Protein (6.4-8.2) g/dL Albumin (3.4-5.0) g/dL Globulin (2.6-4.0) g/dL Albumin/Globulin Ratio (0.9-1.6) Urine Color Urine Appearance Urine pH (5.0-8.0) Ur Specific [place] (1.001-1.035) Urine Protein (NEGATIVE) mg/dL Urine Glucose (UA) (NEGATIVE) mg/dL Urine Ketones (NEGATIVE) mg/dL Urine Occult Blood (NEGATIVE) Urine Nitrite (NEGATIVE) Urine Bilirubin (NEGATIVE) Urine Urobilinogen (<2.0) EU/dL Ur Leukocyte Esterase (NEGATIVE) Urine RBC (0-2/HPF) Urine WBC (0-5/HPF) Ur Epithelial Cells (NONE-FEW) Urine Bacteria (NEGATIVE) Ur Random Creatinine 81.6 mg/dL Ur Random Sodium 43.0 (40.0-220.0) mmol/L SARS-CoV-2 RNA (RADHAMES) NEGATIVE (NEGATIVE) 08/25/20 Range/Units 05:02 WBC (4.0-11.0) K/uL RBC (4.30-5.90) M/uL Hgb (12.0-16.0) g/dL Hct (36.0-46.0) % MCV (80.0-98.0) fL MCH (27.0-32.0) pg MCHC (31.0-37.0) g/dL RDW Std Deviation (28.0-62.0) fl RDW Coeff of Janett (11.0-15.0) % Plt Count (150-400) K/uL MPV (7.40-12.00) fL Neut % (Auto) (48.0-80.0) % Lymph % (Auto) (16.0-40.0) % [place] % (Auto) (0.0-15.0) % Eos % (Auto) (0.0-7.0) % Baso % (Auto) (0.0-1.5) % Neut # (Auto) (1.4-5.7) K/uL Lymph # (Auto) (0.6-2.4) K/uL [place] # (Auto) (0.0-0.8) K/uL Eos # (Auto) (0.0-0.7) K/uL Baso # (Auto) (0.0-0.1) K/uL Nucleated RBC % /100WBC Nucleated RBCs # K/uL Sodium 144 (136-145) mmol/L Potassium 3.7 (3.5-5.1) mmol/L Chloride 109 H (98-107) mmol/L Carbon Dioxide 24.1 (21.0-32.0) mmol/L BUN 31 H (7.0-18.0) mg/dL Creatinine 3.2 H (0.6-1.0) mg/dL Est Cr Clr Drug Dosing 13.26 mL/min Estimated GFR (MDRD) 14.7 ml/min Glucose 98 (74-106) mg/dL Calcium 8.1 L (8.5-10.1) mg/dL Phosphorus 4.9 H (2.6-4.7) mg/dL Magnesium 2.2 (1.8-2.4) mg/dL Total Bilirubin 0.3 (0.2-1.0) mg/dL AST 20 (15-37) IU/L ALT 26 (14-63) IU/L Alkaline Phosphatase 49 (46-116) U/L Total Protein 5.5 L (6.4-8.2) g/dL Albumin 2.6 L (3.4-5.0) g/dL Globulin 2.9 (2.6-4.0) g/dL Albumin/Globulin Ratio 0.9 (0.9-1.6) Urine Color Urine Appearance Urine pH (5.0-8.0) Ur Specific [place] (1.001-1.035) Urine Protein (NEGATIVE) mg/dL Urine Glucose (UA) (NEGATIVE) mg/dL Urine Ketones (NEGATIVE) mg/dL Urine Occult Blood (NEGATIVE) Urine Nitrite (NEGATIVE) Urine Bilirubin (NEGATIVE) Urine Urobilinogen (<2.0) EU/dL Ur Leukocyte Esterase (NEGATIVE) Urine RBC (0-2/HPF) Urine WBC (0-5/HPF) Ur Epithelial Cells (NONE-FEW) Urine Bacteria (NEGATIVE) Ur Random Creatinine mg/dL Ur Random Sodium (40.0-220.0) mmol/L SARS-CoV-2 RNA (RADHAMES) (NEGATIVE) Med Orders - Current: Current Medications Acetaminophen (Tylenol) 650 mg PO Q4H PRN PRN Reason: Pain (Mild 1-3)/fever Fluconazole (Diflucan) 150 mg PO ONETIME [facility] Stop: 08/28/20 09:30 Heparin Sodium (Porcine) (Heparin Sodium) 5,000 units SUBCUT Q8H [facility] Last Admin: 08/25/20 13:34 Dose: 5,000 units Documented by: Pantoprazole Sodium 40 mg/ (Sodium Chloride) 10 mls @ 300 mls/hr IV Q24H [facility] Last Admin: 08/24/20 21:05 Dose: 300 mls/hr Documented by: Ceftriaxone Sodium 1 gm/ (Sodium Chloride) 50 mls @ 100 mls/hr IV Q24H [facility] Last Admin: 08/24/20 21:07 Dose: Not Given Documented by: Lactated Ringer's (Ringers, Lactated) 1,000 mls @ 125 mls/hr IV ASDIRECTED [facility] Last Admin: 08/25/20 07:43 Dose: 125 mls/hr Documented by: Ondansetron HCl (Zofran Odt) 4 mg PO Q4H PRN PRN Reason: nausea, able to take PO Discontinued Medications Ceftriaxone Sodium (Rocephin) 1 gm IVPUSH ONETIME ONE Stop: 08/24/20 17:10 Last Admin: 08/24/20 17:14 Dose: Not Given Documented by: Fluconazole (Diflucan 40 Mg/Ml Susp) 100 mg PO DAILY [facility] Stop: 08/31/20 19:31 Last Admin: 08/24/20 22:28 Dose: 100 mg Documented by: Fluconazole (Diflucan) 150 mg PO DAILY ONE Stop: 08/25/20 09:01 Last Admin: 08/25/20 09:28 Dose: 150 mg Documented by: Heparin Sodium (Porcine) (Heparin Sodium) 5,000 units SUBCUT Q8H [facility] Last Admin: 08/25/20 06:29 Dose: Not Given Documented by: Ceftriaxone Sodium/Dextrose 1 (gm/ Premix) 50 mls @ 100 mls/hr IV ONETIME ONE Stop: 08/24/20 17:42 Last Admin: 08/24/20 17:20 Dose: 100 mls/hr Documented by: Lactated Ringer's (Ringers, Lactated) 1,000 mls @ 999 mls/hr IV BOLUS ONE Stop: 08/24/20 20:03 Last Admin: 08/24/20 21:06 Dose: 999 mls/hr Documented by: Lactated Ringer's (Ringers, Lactated) 1,000 mls @ 999 mls/hr IV .BOLUS ONE Stop: 08/25/20 12:48 Last Admin: 08/25/20 12:25 Dose: 999 mls/hr Documented by: Meclizine HCl (Antivert) 50 mg PO ONETIME ONE Stop: 08/24/20 14:54 Last Admin: 08/24/20 15:09 Dose: 50 mg Documented by: - Exam General: Alert, Oriented HEENT: Pupils Equal, Pupils Reactive, EOMI, Mucous Membr. Moist/[place] Neck: Supple, Trachea Midline, No JVD Lungs: Clear to Auscultation, Normal Respiratory Effort Cardiovascular: Regular Rate, Regular Rhythm, No Murmurs GI/Abdominal Exam: Normal Bowel Sounds, Soft, Non-Tender, No Distention, No Mass (Female) Exam: Normal External Exam. No: Vaginal Bleeding, Vaginal Discharge, Vaginal Lesions, Vaginal Tears Back Exam: CVA Tenderness (L), CVA Tenderness (R) Extremities: Normal Inspection, Normal Range of Motion, No Pedal Edema, Normal Capillary Refill Peripheral Pulses: 2+: Dorsalis Pedis (L), Dorsalis Pedis (R) Skin: Warm, Dry, Intact Neurological: No New Focal Deficit Psy/Mental Status: Alert, Normal Affect, Normal Mood Sepsis Event Note - Evaluation Sepsis Screening Result: No Definite Risk - Focused Exam Vital Signs: Vital Signs Temp Pulse Resp BP BP Pulse Ox 08/25/20 11:54 98 F 57 L 16 117/56 L 97 08/25/20 08:17 97.9 F 65 14 105/61 97 08/25/20 07:47 98 F 65 14 105/61 97 08/25/20 04:07 97.4 F 55 L 16 98/53 L 95 - Problem List & Annotations (1) Vaginal candidiasis SNOMED Code(s): 50746528 Code(s): B37.3 - CANDIDIASIS OF VULVA AND VAGINA Status: Acute Current Visit: Yes (2) Pyelonephritis SNOMED Code(s): 72836649 Code(s): N12 - TUBULO-INTERSTITIAL NEPHRITIS, NOT SPCF ACUTE OR CHRONIC Status: Acute Current Visit: Yes (3) ANN-MARIE (acute kidney injury) SNOMED Code(s): 37784024, 77800430 Code(s): N17.9 - ACUTE KIDNEY FAILURE, UNSPECIFIED Status: Acute Current Visit: Yes - Problem List Review Problem List Initiated/Reviewed/Updated: Yes - My Orders Last 24 Hours: My Active Orders 08/24/20 Dinner Regular Diet [DIET] 08/24/20 16:31 CULTURE URINE [RM] Stat 08/24/20 19:03 Oxygen Therapy [RC] PRN Up ad Danica [RC] ASDIRECTED VTE/DVT Education [RC] PER UNIT ROUTINE Vital Signs [RC] Q4H Acetaminophen [TylenoL] 650 mg PO Q4H PRN Ondansetron [Zofran ODT] 4 mg PO Q4H PRN Blood Culture x2 Reflex Set [OM.PC] Stat Resuscitation Status Routine 08/24/20 19:15 Pantoprazole [ProTONIX IV] 40 mg Sodium Chloride 0.9% [Normal Saline] 10 ml IV Q24H cefTRIAXone [Rocephin] 1 gm Sodium Chloride 0.9% [Normal Saline] 50 ml IV Q24H 08/24/20 19:38 CULTURE BLOOD [BC] Stat 08/24/20 19:43 CULTURE BLOOD [BC] Stat 08/24/20 20:30 Lactated Ringers [Ringers, Lactated] 1,000 ml IV ASDIRECTED 08/25/20 05:30 Heparin Sodium 5,000 units SUBCUT Q8H 08/26/20 05:11 CBC WITH AUTO DIFF [HEME] AM COMPREHENSIVE METABOLIC PN,CMP [CHEM] AM MAGNESIUM [CHEM] AM PHOSPHORUS [CHEM] AM 08/27/20 05:11 CBC WITH AUTO DIFF [HEME] AM COMPREHENSIVE METABOLIC PN,CMP [CHEM] AM MAGNESIUM [CHEM] AM PHOSPHORUS [CHEM] AM - Plan Plan:: Pt is a 59 y/o F being treated for pyelonephritis, ANN-MARIE and vaginal candidiasis. 1.Pyelonephritis: Continue Rocephin total 7 days, UC/ BC pending, pt remains afebrile. CVA tenderness b/l has improved. Another LR bolus today , followed by maintenance fluids 125 LR. encouraged PO fluid intake Tylenol for pain PRN Q6 2.ANN-MARIE:Improved, 0.1% Fena therefore likely pre-renal injsut, BUN and CR continue to trend downwards. Continue to hydrate as mentioned above. 3.Vaginal Candidiasis- symptoms improved, continue fluconazole I performed a history and physical exam of the patient and discussed management with resident. I have reviewed the residents note and agree with documented findings and plan unless otherwise specified in my note. <Glynn Tanner - Last Filed: 08/26/20 23:04> - Patient Data Vitals - Most Recent: Last Vital Signs Temp 36.7 C 08/26/20 20:00 Pulse 57 L 08/26/20 20:00 Resp 17 08/26/20 20:00 BP 111/57 L 08/26/20 20:00 Pulse Ox 95 08/26/20 20:00 I&O - Last 24 Hours: Intake & Output 08/26/20 08/26/20 08/27/20 14:59 22:59 06:59 Intake Total 1600 Output Total 1480 Balance 120 Lab Results Last 24 Hours: Laboratory Results - last 24 hr 08/26/20 08/26/20 Range/Units 04:48 04:48 WBC 5.28 (4.0-11.0) K/uL RBC 3.89 L (4.30-5.90) M/uL Hgb 11.8 L (12.0-16.0) g/dL Hct 36.2 (36.0-46.0) % MCV 93.1 (80.0-98.0) fL MCH 30.3 (27.0-32.0) pg MCHC 32.6 (31.0-37.0) g/dL RDW Std Deviation 43.8 (28.0-62.0) fl RDW Coeff of Janett 13 (11.0-15.0) % Plt Count 159 (150-400) K/uL MPV 10.40 (7.40-12.00) fL Neut % (Auto) 48.5 (48.0-80.0) % Lymph % (Auto) 42.4 H (16.0-40.0) % [place] % (Auto) 7.0 (0.0-15.0) % Eos % (Auto) 1.7 (0.0-7.0) % Baso % (Auto) 0.4 (0.0-1.5) % Neut # (Auto) 2.6 (1.4-5.7) K/uL Lymph # (Auto) 2.2 (0.6-2.4) K/uL [place] # (Auto) 0.4 (0.0-0.8) K/uL Eos # (Auto) 0.1 (0.0-0.7) K/uL Baso # (Auto) 0.0 (0.0-0.1) K/uL Nucleated RBC % 0.0 /100WBC Nucleated RBCs # 0 K/uL Sodium 143 (136-145) mmol/L Potassium 3.5 (3.5-5.1) mmol/L Chloride 109 H (98-107) mmol/L Carbon Dioxide 27.0 (21.0-32.0) mmol/L BUN 25 H (7.0-18.0) mg/dL Creatinine 2.1 H (0.6-1.0) mg/dL Est Cr Clr Drug Dosing 20.21 mL/min Estimated GFR (MDRD) 23.9 ml/min Glucose 98 (74-106) mg/dL Calcium 8.1 L (8.5-10.1) mg/dL Phosphorus 3.7 (2.6-4.7) mg/dL Magnesium 1.8 (1.8-2.4) mg/dL Total Bilirubin 0.2 (0.2-1.0) mg/dL AST 18 (15-37) IU/L ALT 26 (14-63) IU/L Alkaline Phosphatase 44 L (46-116) U/L Total Protein 5.4 L (6.4-8.2) g/dL Albumin 2.7 L (3.4-5.0) g/dL Globulin 2.7 (2.6-4.0) g/dL Albumin/Globulin Ratio 1.0 (0.9-1.6) Elmer Results Last 24 Hours: Microbiology 08/24/20 19:43 Aerobic Blood Culture - Preliminary Blood - Venous - Lab Draw NO GROWTH AFTER 2 DAYS Anaerobic Blood Culture - Preliminary NO GROWTH AFTER 2 DAYS 08/24/20 19:38 Aerobic Blood Culture - Preliminary Blood - Venous NO GROWTH AFTER 2 DAYS Anaerobic Blood Culture - Preliminary NO GROWTH AFTER 2 DAYS 08/26/20 11:26 C. difficile Antigen & Toxins A,B - Final Stool / Feces 08/24/20 16:31 Urine Culture - Final Urine, Bladder No Growth Med Orders - Current: Current Medications Acetaminophen (Tylenol) 650 mg PO Q4H PRN PRN Reason: Pain (Mild 1-3)/fever Last Admin: 08/26/20 17:47 Dose: 650 mg Documented by: Heparin Sodium (Porcine) (Heparin Sodium) 5,000 units SUBCUT Q8H [facility] Last Admin: 08/26/20 21:32 Dose: 5,000 units Documented by: Pantoprazole Sodium 40 mg/ (Sodium Chloride) 10 mls @ 300 mls/hr IV Q24H [facility] Last Admin: 08/26/20 18:32 Dose: 300 mls/hr Documented by: Lactated Ringer's (Ringers, Lactated) 1,000 mls @ 125 mls/hr IV ASDIRECTED [facility] Last Admin: 08/26/20 10:56 Dose: 125 mls/hr Documented by: Ceftriaxone Sodium/Dextrose 1 (gm/ Premix) 50 mls @ 100 mls/hr IV Q24H [facility] Last Admin: 08/26/20 18:35 Dose: 100 mls/hr Documented by: Ondansetron HCl (Zofran Odt) 4 mg PO Q4H PRN PRN Reason: nausea, able to take PO Last Admin: 08/26/20 05:43 Dose: 4 mg Documented by: Discontinued Medications Ceftriaxone Sodium (Rocephin) 1 gm IVPUSH ONETIME ONE Stop: 08/24/20 17:10 Last Admin: 08/24/20 17:14 Dose: Not Given Documented by: Fluconazole (Diflucan 40 Mg/Ml Susp) 100 mg PO DAILY [facility] Stop: 08/31/20 19:31 Last Admin: 08/24/20 22:28 Dose: 100 mg Documented by: Fluconazole (Diflucan) 150 mg PO DAILY ONE Stop: 08/25/20 09:01 Last Admin: 08/25/20 09:28 Dose: 150 mg Documented by: Fluconazole (Diflucan) 150 mg PO ONETIME [facility] Stop: 08/28/20 09:30 Heparin Sodium (Porcine) (Heparin Sodium) 5,000 units SUBCUT Q8H [facility] Last Admin: 08/25/20 06:29 Dose: Not Given Documented by: Ceftriaxone Sodium/Dextrose 1 (gm/ Premix) 50 mls @ 100 mls/hr IV ONETIME ONE Stop: 08/24/20 17:42 Last Admin: 08/24/20 17:20 Dose: 100 mls/hr Documented by: Lactated Ringer's (Ringers, Lactated) 1,000 mls @ 999 mls/hr IV BOLUS ONE Stop: 08/24/20 20:03 Last Admin: 08/24/20 21:06 Dose: 999 mls/hr Documented by: Ceftriaxone Sodium 1 gm/ (Sodium Chloride) 50 mls @ 100 mls/hr IV Q24H [facility] Last Admin: 08/25/20 19:15 Dose: 100 mls/hr Documented by: Lactated Ringer's (Ringers, Lactated) 1,000 mls @ 999 mls/hr IV .BOLUS ONE Stop: 08/25/20 12:48 Last Admin: 08/25/20 12:25 Dose: 999 mls/hr Documented by: Meclizine HCl (Antivert) 50 mg PO ONETIME ONE Stop: 08/24/20 14:54 Last Admin: 08/24/20 15:09 Dose: 50 mg Documented by: Sepsis Event Note - Focused Exam Vital Signs: Vital Signs Temp Pulse Resp BP Pulse Ox Pulse Ox 08/26/20 20:00 36.7 C 57 L 17 111/57 L 95 08/26/20 19:00 97 08/26/20 16:00 36.3 C 63 20 132/72 96 08/26/20 11:45 35.7 C L 55 L 20 125/64 98 - Problem List & Annotations (1) ANN-MARIE (acute kidney injury) SNOMED Code(s): 97888736, 04051450 Code(s): N17.9 - ACUTE KIDNEY FAILURE, UNSPECIFIED Status: Acute Current Visit: Yes (2) Pyelonephritis SNOMED Code(s): 66208047 Code(s): N12 - TUBULO-INTERSTITIAL NEPHRITIS, NOT SPCF ACUTE OR CHRONIC Status: Acute Current Visit: Yes (3) Vaginal candidiasis SNOMED Code(s): 56242459 Code(s): B37.3 - CANDIDIASIS OF VULVA AND VAGINA Status: Acute Current Visit: Yes - Plan Plan:: I have seen and evaluated the patient and agree with the residents note unless specified in my note
[2020-08-25] MEDS: Pantoprazole 40 MG in Sodium Chloride 0.9% 10 ML IV SCH (19:14)
[2020-08-25] MEDS: cefTRIAXone 1 GM in Sodium Chloride 0.9% 50 ML IV SCH (19:15)
[2020-08-26] MEDS: Lactated Ringers 1,000 ML IV SCH ×3 (02:40→23:24)
[2020-08-26] MEDS: Heparin Sodium 5,000 Units/ML Vial SUBCUT SCH ×3 (05:42→21:32)
[2020-08-26] MEDS: Acetaminophen 325 MG Tab PO PRN ×3 (05:43→23:27)
[2020-08-26] MEDS: Ondansetron 4 MG Tab.DIS PO PRN (05:43)
[2020-08-26 05:52] LABS: POTASSIUM,K 3.5 mmol/L (3.5-5.1)
--- NOTE | 2020-08-26 15:10 | PCM.PN ---
- General Info Date of Service: 08/26/20 Subjective Update: 59 y/o F admitted for Pyelonephritis, states she is doing better today. Denies any fever, chills, or flank pain. Does share that she has been experience more frequent and loose stools in the last 24 hours. Otherwise denies any abdominal pain, nausea, vomiting. - Review of Systems General: Reports: No Symptoms HEENT: Reports: No Symptoms Pulmonary: Reports: No Symptoms Cardiovascular: Reports: No Symptoms Gastrointestinal: Reports: Diarrhea (loose stools), Flatus. Denies: Abdominal Pain, Decreased Appetite, Hematochezia, Melena, Nausea, Vomiting Genitourinary: Reports: No Symptoms, Frequency, Burning, Pain, Urgency. Denies: Dysuria Musculoskeletal: Reports: No Symptoms Skin: Reports: No Symptoms Neurological: Reports: No Symptoms Psychiatric: Reports: No Symptoms - Patient Data Vitals - Most Recent: Last Vital Signs Temp 96.3 F L 08/26/20 11:45 Pulse 55 L 08/26/20 11:45 Resp 20 08/26/20 11:45 BP 125/64 08/26/20 11:45 Pulse Ox 98 08/26/20 11:45 Weight - Most Recent: 127 lb I&O - Last 24 Hours: Intake & Output 08/26/20 08/26/20 08/26/20 06:59 14:59 22:59 Intake Total 550 Output Total 2000 Balance -1450 Lab Results Last 24 Hours: Laboratory Results - last 24 hr 08/26/20 08/26/20 Range/Units 04:48 04:48 WBC 5.28 (4.0-11.0) K/uL RBC 3.89 L (4.30-5.90) M/uL Hgb 11.8 L (12.0-16.0) g/dL Hct 36.2 (36.0-46.0) % MCV 93.1 (80.0-98.0) fL MCH 30.3 (27.0-32.0) pg MCHC 32.6 (31.0-37.0) g/dL RDW Std Deviation 43.8 (28.0-62.0) fl RDW Coeff of Janett 13 (11.0-15.0) % Plt Count 159 (150-400) K/uL MPV 10.40 (7.40-12.00) fL Neut % (Auto) 48.5 (48.0-80.0) % Lymph % (Auto) 42.4 H (16.0-40.0) % [place] % (Auto) 7.0 (0.0-15.0) % Eos % (Auto) 1.7 (0.0-7.0) % Baso % (Auto) 0.4 (0.0-1.5) % Neut # (Auto) 2.6 (1.4-5.7) K/uL Lymph # (Auto) 2.2 (0.6-2.4) K/uL [place] # (Auto) 0.4 (0.0-0.8) K/uL Eos # (Auto) 0.1 (0.0-0.7) K/uL Baso # (Auto) 0.0 (0.0-0.1) K/uL Nucleated RBC % 0.0 /100WBC Nucleated RBCs # 0 K/uL Sodium 143 (136-145) mmol/L Potassium 3.5 (3.5-5.1) mmol/L Chloride 109 H (98-107) mmol/L Carbon Dioxide 27.0 (21.0-32.0) mmol/L BUN 25 H (7.0-18.0) mg/dL Creatinine 2.1 H (0.6-1.0) mg/dL Est Cr Clr Drug Dosing 20.21 mL/min Estimated GFR (MDRD) 23.9 ml/min Glucose 98 (74-106) mg/dL Calcium 8.1 L (8.5-10.1) mg/dL Phosphorus 3.7 (2.6-4.7) mg/dL Magnesium 1.8 (1.8-2.4) mg/dL Total Bilirubin 0.2 (0.2-1.0) mg/dL AST 18 (15-37) IU/L ALT 26 (14-63) IU/L Alkaline Phosphatase 44 L (46-116) U/L Total Protein 5.4 L (6.4-8.2) g/dL Albumin 2.7 L (3.4-5.0) g/dL Globulin 2.7 (2.6-4.0) g/dL Albumin/Globulin Ratio 1.0 (0.9-1.6) Elmer Results Last 24 Hours: Microbiology 08/26/20 11:26 C. difficile Antigen & Toxins A,B - Final Stool / Feces 08/24/20 16:31 Urine Culture - Final Urine, Bladder No Growth 08/24/20 19:43 Aerobic Blood Culture - Preliminary Blood - Venous - Lab Draw NO GROWTH AFTER 1 DAY Anaerobic Blood Culture - Preliminary NO GROWTH AFTER 1 DAY 08/24/20 19:38 Aerobic Blood Culture - Preliminary Blood - Venous NO GROWTH AFTER 1 DAY Anaerobic Blood Culture - Preliminary NO GROWTH AFTER 1 DAY Med Orders - Current: Current Medications Acetaminophen (Tylenol) 650 mg PO Q4H PRN PRN Reason: Pain (Mild 1-3)/fever Last Admin: 08/26/20 05:43 Dose: 650 mg Documented by: Heparin Sodium (Porcine) (Heparin Sodium) 5,000 units SUBCUT Q8H [facility] Last Admin: 08/26/20 13:58 Dose: 5,000 units Documented by: Pantoprazole Sodium 40 mg/ (Sodium Chloride) 10 mls @ 300 mls/hr IV Q24H [facility] Last Admin: 08/25/20 19:14 Dose: 300 mls/hr Documented by: Ceftriaxone Sodium 1 gm/ (Sodium Chloride) 50 mls @ 100 mls/hr IV Q24H [facility] Last Admin: 08/25/20 19:15 Dose: 100 mls/hr Documented by: Lactated Ringer's (Ringers, Lactated) 1,000 mls @ 125 mls/hr IV ASDIRECTED [facility] Last Admin: 08/26/20 10:56 Dose: 125 mls/hr Documented by: Ondansetron HCl (Zofran Odt) 4 mg PO Q4H PRN PRN Reason: nausea, able to take PO Last Admin: 08/26/20 05:43 Dose: 4 mg Documented by: Discontinued Medications Ceftriaxone Sodium (Rocephin) 1 gm IVPUSH ONETIME ONE Stop: 08/24/20 17:10 Last Admin: 08/24/20 17:14 Dose: Not Given Documented by: Fluconazole (Diflucan 40 Mg/Ml Susp) 100 mg PO DAILY [facility] Stop: 08/31/20 19:31 Last Admin: 08/24/20 22:28 Dose: 100 mg Documented by: Fluconazole (Diflucan) 150 mg PO DAILY ONE Stop: 08/25/20 09:01 Last Admin: 08/25/20 09:28 Dose: 150 mg Documented by: Fluconazole (Diflucan) 150 mg PO ONETIME [facility] Stop: 08/28/20 09:30 Heparin Sodium (Porcine) (Heparin Sodium) 5,000 units SUBCUT Q8H [facility] Last Admin: 08/25/20 06:29 Dose: Not Given Documented by: Ceftriaxone Sodium/Dextrose 1 (gm/ Premix) 50 mls @ 100 mls/hr IV ONETIME ONE Stop: 08/24/20 17:42 Last Admin: 08/24/20 17:20 Dose: 100 mls/hr Documented by: Lactated Ringer's (Ringers, Lactated) 1,000 mls @ 999 mls/hr IV BOLUS ONE Stop: 08/24/20 20:03 Last Admin: 08/24/20 21:06 Dose: 999 mls/hr Documented by: Lactated Ringer's (Ringers, Lactated) 1,000 mls @ 999 mls/hr IV .BOLUS ONE Stop: 08/25/20 12:48 Last Admin: 08/25/20 12:25 Dose: 999 mls/hr Documented by: Meclizine HCl (Antivert) 50 mg PO ONETIME ONE Stop: 08/24/20 14:54 Last Admin: 08/24/20 15:09 Dose: 50 mg Documented by: - Exam General: Alert, Oriented, Cooperative HEENT: Pupils Equal, Pupils Reactive, EOMI, Mucous Membr. Moist/[place] Neck: Supple, Trachea Midline, No JVD Lungs: Clear to Auscultation, Normal Respiratory Effort Cardiovascular: Regular Rate, Regular Rhythm GI/Abdominal Exam: Normal Bowel Sounds, Soft, Non-Tender, No Organomegaly (Female) Exam: Normal External Exam, Normal Speculum Exam Back Exam: CVA Tenderness (L) (3/10), CVA Tenderness (R) Extremities: Normal Inspection, Normal Range of Motion, No Pedal Edema, Normal Capillary Refill Peripheral Pulses: 2+: Radial (L), Radial (R), Dorsalis Pedis (L), Dorsalis Pedis (R) Skin: Warm, Dry Neurological: No New Focal Deficit Psy/Mental Status: Alert, Normal Affect, Normal Mood Sepsis Event Note - Evaluation Sepsis Screening Result: No Definite Risk - Focused Exam Vital Signs: Vital Signs Temp Pulse Resp BP Pulse Ox 08/26/20 11:45 96.3 F L 55 L 20 125/64 98 08/26/20 04:00 98 F 55 L 16 120/61 94 L - Problem List & Annotations (1) Vaginal candidiasis SNOMED Code(s): 24319120 Code(s): B37.3 - CANDIDIASIS OF VULVA AND VAGINA Status: Acute Current Visit: Yes (2) Pyelonephritis SNOMED Code(s): 96001132 Code(s): N12 - TUBULO-INTERSTITIAL NEPHRITIS, NOT SPCF ACUTE OR CHRONIC Status: Acute Current Visit: Yes (3) ANN-MARIE (acute kidney injury) SNOMED Code(s): 45405969, 60218273 Code(s): N17.9 - ACUTE KIDNEY FAILURE, UNSPECIFIED Status: Acute Current Visit: Yes - Problem List Review Problem List Initiated/Reviewed/Updated: Yes - My Orders Last 24 Hours: My Active Orders 08/27/20 05:11 CBC WITH AUTO DIFF [HEME] AM COMPREHENSIVE METABOLIC PN,CMP [CHEM] AM MAGNESIUM [CHEM] AM PHOSPHORUS [CHEM] AM - Plan Plan:: Pt is a 59 y/o F being treated for pyelonephritis, ANN-MARIE and vaginal candidiasis. 1.Pyelonephritis: Continue Rocephin total 7 days, UC was negative. pt remains afebrile. CVA tenderness b/l has improved 3/10 today. Continue to hydrate via PO intake and maintenance fluids 125 LR. Tylenol onboard for pain PRN Q6. 2.ANN-MARIE:Improved, 0.1% Fena therefore likely pre-renal injury, downtrending BUN and CR, continue to trend downwards. Continue to hydrate via 1L LR at 125cc/hr. 3.Vaginal Candidiasis- resolved, discontinue fluconazole I performed a history and physical exam of the patient and discussed management with resident. I have reviewed the residents note and agree with documented findings and plan unless otherwise specified in my note.
[2020-08-26] MEDS: Pantoprazole 40 MG in Sodium Chloride 0.9% 10 ML IV SCH (18:32)
[2020-08-26] MEDS ORDERED: cefTRIAXone 1 GM in Premix Bag 1 BAG IV SCH (19:15)
[2020-08-27] MEDS: Heparin Sodium 5,000 Units/ML Vial SUBCUT SCH (06:30)
[2020-08-27] MEDS ORDERED: Magnesium Sulfate/Water 2 GM/50 ML BAG IV ONE (07:30)
[2020-08-27] MEDS: Ondansetron 4 MG Tab.DIS PO PRN (07:41)
[2020-08-27] MEDS: Lactated Ringers 1,000 ML IV SCH (07:42)
[2020-08-27] MEDS ORDERED: Magnesium Sulfate/Water 2 GM/50 ML Premix Bag IV ONE (08:00)
--- NOTE | 2020-08-27 08:53 | PCM.PN ---
- General Info Date of Service: 08/27/20 Subjective Update: No fevers or chills overnight. Reports tolerating oral diet with no nausea or vomiting. Abdominal pain and diarrhea has improved. - Patient Data Vitals - Most Recent: Last Vital Signs Temp 36.3 C 08/27/20 03:40 Pulse 52 L 08/27/20 03:40 Resp 14 08/27/20 03:40 BP 119/66 08/27/20 03:40 Pulse Ox 93 L 08/27/20 03:40 Weight - Most Recent: 57.606 kg I&O - Last 24 Hours: Intake & Output 08/26/20 08/27/20 08/27/20 22:59 06:59 14:59 Intake Total 1600 2631 Output Total 1480 1600 Balance 120 1031 Lab Results Last 24 Hours: Laboratory Results - last 24 hr 08/27/20 08/27/20 Range/Units 05:40 05:40 WBC 4.16 (4.0-11.0) K/uL RBC 3.79 L (4.30-5.90) M/uL Hgb 11.6 L (12.0-16.0) g/dL Hct 35.1 L (36.0-46.0) % MCV 92.6 (80.0-98.0) fL MCH 30.6 (27.0-32.0) pg MCHC 33.0 (31.0-37.0) g/dL RDW Std Deviation 43.8 (28.0-62.0) fl RDW Coeff of Janett 13 (11.0-15.0) % Plt Count 160 (150-400) K/uL MPV 11.00 (7.40-12.00) fL Neut % (Auto) 44.7 L (48.0-80.0) % Lymph % (Auto) 45.0 H (16.0-40.0) % [place] % (Auto) 7.7 (0.0-15.0) % Eos % (Auto) 1.9 (0.0-7.0) % Baso % (Auto) 0.7 (0.0-1.5) % Neut # (Auto) 1.9 (1.4-5.7) K/uL Lymph # (Auto) 1.9 (0.6-2.4) K/uL [place] # (Auto) 0.3 (0.0-0.8) K/uL Eos # (Auto) 0.1 (0.0-0.7) K/uL Baso # (Auto) 0.0 (0.0-0.1) K/uL Nucleated RBC % 0.0 /100WBC Nucleated RBCs # 0 K/uL Sodium 144 (136-145) mmol/L Potassium 4.0 (3.5-5.1) mmol/L Chloride 110 H (98-107) mmol/L Carbon Dioxide 27.0 (21.0-32.0) mmol/L BUN 18 (7.0-18.0) mg/dL Creatinine 1.5 H (0.6-1.0) mg/dL Est Cr Clr Drug Dosing 28.29 mL/min Estimated GFR (MDRD) 35.3 ml/min Glucose 98 (74-106) mg/dL Calcium 8.2 L (8.5-10.1) mg/dL Phosphorus 4.8 H (2.6-4.7) mg/dL Magnesium 1.7 L (1.8-2.4) mg/dL Total Bilirubin 0.4 (0.2-1.0) mg/dL AST 39 H (15-37) IU/L ALT 34 (14-63) IU/L Alkaline Phosphatase 44 L (46-116) U/L Total Protein 5.5 L (6.4-8.2) g/dL Albumin 2.8 L (3.4-5.0) g/dL Globulin 2.7 (2.6-4.0) g/dL Albumin/Globulin Ratio 1.0 (0.9-1.6) Elmer Results Last 24 Hours: Microbiology 08/24/20 19:43 Aerobic Blood Culture - Preliminary Blood - Venous - Lab Draw NO GROWTH AFTER 2 DAYS Anaerobic Blood Culture - Preliminary NO GROWTH AFTER 2 DAYS 08/24/20 19:38 Aerobic Blood Culture - Preliminary Blood - Venous NO GROWTH AFTER 2 DAYS Anaerobic Blood Culture - Preliminary NO GROWTH AFTER 2 DAYS 08/26/20 11:26 C. difficile Antigen & Toxins A,B - Final Stool / Feces 08/24/20 16:31 Urine Culture - Final Urine, Bladder No Growth Med Orders - Current: Current Medications Acetaminophen (Tylenol) 650 mg PO Q4H PRN PRN Reason: Pain (Mild 1-3)/fever Last Admin: 08/26/20 23:27 Dose: 650 mg Documented by: Heparin Sodium (Porcine) (Heparin Sodium) 5,000 units SUBCUT Q8H [facility] Last Admin: 08/27/20 06:30 Dose: 5,000 units Documented by: Pantoprazole Sodium 40 mg/ (Sodium Chloride) 10 mls @ 300 mls/hr IV Q24H [facility] Last Admin: 08/26/20 18:32 Dose: 300 mls/hr Documented by: Lactated Ringer's (Ringers, Lactated) 1,000 mls @ 125 mls/hr IV ASDIRECTED [facility] Last Admin: 08/27/20 07:42 Dose: 125 mls/hr Documented by: Ceftriaxone Sodium/Dextrose 1 (gm/ Premix) 50 mls @ 100 mls/hr IV Q24H [facility] Last Admin: 08/26/20 18:35 Dose: 100 mls/hr Documented by: Ondansetron HCl (Zofran Odt) 4 mg PO Q4H PRN PRN Reason: nausea, able to take PO Last Admin: 08/27/20 07:41 Dose: 4 mg Documented by: Discontinued Medications Ceftriaxone Sodium (Rocephin) 1 gm IVPUSH ONETIME ONE Stop: 08/24/20 17:10 Last Admin: 08/24/20 17:14 Dose: Not Given Documented by: Fluconazole (Diflucan 40 Mg/Ml Susp) 100 mg PO DAILY [facility] Stop: 08/31/20 19:31 Last Admin: 08/24/20 22:28 Dose: 100 mg Documented by: Fluconazole (Diflucan) 150 mg PO DAILY ONE Stop: 08/25/20 09:01 Last Admin: 08/25/20 09:28 Dose: 150 mg Documented by: Fluconazole (Diflucan) 150 mg PO ONETIME [facility] Stop: 08/28/20 09:30 Heparin Sodium (Porcine) (Heparin Sodium) 5,000 units SUBCUT Q8H [facility] Last Admin: 08/25/20 06:29 Dose: Not Given Documented by: Ceftriaxone Sodium/Dextrose 1 (gm/ Premix) 50 mls @ 100 mls/hr IV ONETIME ONE Stop: 08/24/20 17:42 Last Admin: 08/24/20 17:20 Dose: 100 mls/hr Documented by: Lactated Ringer's (Ringers, Lactated) 1,000 mls @ 999 mls/hr IV BOLUS ONE Stop: 08/24/20 20:03 Last Admin: 08/24/20 21:06 Dose: 999 mls/hr Documented by: Ceftriaxone Sodium 1 gm/ (Sodium Chloride) 50 mls @ 100 mls/hr IV Q24H [facility] Last Admin: 08/25/20 19:15 Dose: 100 mls/hr Documented by: Lactated Ringer's (Ringers, Lactated) 1,000 mls @ 999 mls/hr IV .BOLUS ONE Stop: 08/25/20 12:48 Last Admin: 08/25/20 12:25 Dose: 999 mls/hr Documented by: Magnesium Sulfate (Magnesium Sulfate In Water Premix) 2 gm in 50 mls @ 50 mls/hr IV ONETIME ONE Stop: 08/27/20 08:29 Last Admin: 08/27/20 08:14 Dose: 50 mls/hr Documented by: Meclizine HCl (Antivert) 50 mg PO ONETIME ONE Stop: 08/24/20 14:54 Last Admin: 08/24/20 15:09 Dose: 50 mg Documented by: - Exam General: Alert, Oriented, Cooperative, No Acute Distress Lungs: Clear to Auscultation, Normal Respiratory Effort Cardiovascular: Regular Rate, Regular Rhythm GI/Abdominal Exam: Normal Bowel Sounds, Soft, Non-Tender, No Distention Extremities: Normal Inspection, No Pedal Edema Sepsis Event Note - Evaluation Sepsis Screening Result: No Definite Risk - Focused Exam Vital Signs: Vital Signs Temp Pulse Resp BP Pulse Ox 08/27/20 03:40 36.3 C 52 L 14 119/66 93 L 08/27/20 00:00 36.9 C 50 L 16 119/64 94 L - Problem List & Annotations (1) Pyelonephritis SNOMED Code(s): 60311114 Code(s): N12 - TUBULO-INTERSTITIAL NEPHRITIS, NOT SPCF ACUTE OR CHRONIC Status: Acute Current Visit: Yes (2) ANN-MARIE (acute kidney injury) SNOMED Code(s): 27061369, 27785153 Code(s): N17.9 - ACUTE KIDNEY FAILURE, UNSPECIFIED Status: Acute Current Visit: Yes - Problem List Review Problem List Initiated/Reviewed/Updated: Yes - My Orders Last 24 Hours: My Active Orders 08/26/20 09:46 Admission Status [Patient Status] [ADT] Routine 08/28/20 05:11 CBC WITH AUTO DIFF [HEME] AM CMP [COMPREHENSIVE METABOLIC PN,CMP] [CHEM] AM - Plan Plan:: Assessment and Plan: 1. Acute pyelonephritis: - Currently on Rocephin. Urine culture was negative. IV LR's @ 125 cc/hr. 2. ANN-MARIE, improving: - Patient on IV LR's. Will continue to monitor. 3. DVT prophylaxis: - Heparin 5000 units subcut q8h.
[2020-08-27 10:04] VITALS: BP 132/71; PULSE 54
--- NOTE | 2020-08-27 10:42 | PCM.DCSUM1 ---
Discharge Summary - Hospital Course Free Text/Narrative:: 59-year-old female admitted for acute pyelonephritis and ANN-MARIE. She has a PMH of endometriosis. COVID19 test was negative. On admission, creatinine was 3.8. CT abd/pelvis showed nonspecific perinephric stranding of b/l kidneys without evidence of radiopaque calculus. Patient was treated with IV rocephin and IV fluids. Urine cultures grew mixed heidi. Patient had improvement in her pain and was able to tolerate PO by day of discharge. She remained afebrile. Her creatinine improved to 1.5 by day of discharge. She was given script for ciprofloxacin 500 mg BID x 4 more days. She will require recheck of BMP in 1 week at her follow-up appointment with PCP. All questions addressed. - Discharge Data Discharge Date: 08/27/20 Discharge Disposition: Home, Self-Care 01 Condition: Stable - Referral to Home Health Primary Care Physician: Patricia Atwood MD - Discharge Diagnosis/Problem(s) (1) Pyelonephritis SNOMED Code(s): 43925745 ICD Code: N12 - TUBULO-INTERSTITIAL NEPHRITIS, NOT SPCF ACUTE OR CHRONIC Status: Acute Current Visit: Yes (2) ANN-MARIE (acute kidney injury) SNOMED Code(s): 78559057, 43501609 ICD Code: N17.9 - ACUTE KIDNEY FAILURE, UNSPECIFIED Status: Acute Current Visit: Yes - Patient Instructions Diet: Usual Diet as Tolerated Activity: As Tolerated Notify Provider of: Fever, Increased Pain, Swelling and Redness, Drainage, Nausea and/or Vomiting Other/Special Instructions: Avoid taking NSAID's. - Discharge Plan *PRESCRIPTION DRUG MONITORING PROGRAM REVIEWED*: Not Applicable *COPY OF PRESCRIPTION DRUG MONITORING REPORT IN PATIENT VIVI: Not Applicable Prescriptions/Med Rec: Ciprofloxacin HCl [Cipro] 500 mg PO BID 4 Days #8 tab Home Medications: Home Meds Multivitamin [Multivitamins] 1 tab PO DAILY 01/28/17 [History] Ondansetron [Zofran ODT] 4 mg PO Q6H PRN 08/24/20 [History] metroNIDAZOLE [Metronidazole] 500 mg PO TID 08/24/20 [History] Ciprofloxacin HCl [Cipro] 500 mg PO BID 4 Days #8 tab 08/27/20 [Rx] Oxygen Therapy Mode: Room Air Patient Handouts: Pyelonephritis, Adult, [id number], Ciprofloxacin tablets Referrals: Vidya Chaudhari, PATRICIA [Nurse Practitioner] - 09/02/20 11:00 am - Discharge Summary/Plan Comment DC Time >30 min.: No - Patient Data Vitals - Most Recent: Last Vital Signs Temp 36.6 C 08/27/20 08:00 Pulse 54 L 08/27/20 08:00 Resp 18 08/27/20 08:00 BP 132/71 08/27/20 08:00 Pulse Ox 95 08/27/20 08:00 Weight - Most Recent: 57.606 kg I&O - Last 24 hours: Intake & Output 08/26/20 08/27/20 08/27/20 22:59 06:59 14:59 Intake Total 1600 2631 Output Total 1480 1600 Balance 120 1031 Lab Results - Last 24 hrs: Laboratory Results - last 24 hr 08/27/20 08/27/20 Range/Units 05:40 05:40 WBC 4.16 (4.0-11.0) K/uL RBC 3.79 L (4.30-5.90) M/uL Hgb 11.6 L (12.0-16.0) g/dL Hct 35.1 L (36.0-46.0) % MCV 92.6 (80.0-98.0) fL MCH 30.6 (27.0-32.0) pg MCHC 33.0 (31.0-37.0) g/dL RDW Std Deviation 43.8 (28.0-62.0) fl RDW Coeff of Janett 13 (11.0-15.0) % Plt Count 160 (150-400) K/uL MPV 11.00 (7.40-12.00) fL Neut % (Auto) 44.7 L (48.0-80.0) % Lymph % (Auto) 45.0 H (16.0-40.0) % [place] % (Auto) 7.7 (0.0-15.0) % Eos % (Auto) 1.9 (0.0-7.0) % Baso % (Auto) 0.7 (0.0-1.5) % Neut # (Auto) 1.9 (1.4-5.7) K/uL Lymph # (Auto) 1.9 (0.6-2.4) K/uL [place] # (Auto) 0.3 (0.0-0.8) K/uL Eos # (Auto) 0.1 (0.0-0.7) K/uL Baso # (Auto) 0.0 (0.0-0.1) K/uL Nucleated RBC % 0.0 /100WBC Nucleated RBCs # 0 K/uL Sodium 144 (136-145) mmol/L Potassium 4.0 (3.5-5.1) mmol/L Chloride 110 H (98-107) mmol/L Carbon Dioxide 27.0 (21.0-32.0) mmol/L BUN 18 (7.0-18.0) mg/dL Creatinine 1.5 H (0.6-1.0) mg/dL Est Cr Clr Drug Dosing 28.29 mL/min Estimated GFR (MDRD) 35.3 ml/min Glucose 98 (74-106) mg/dL Calcium 8.2 L (8.5-10.1) mg/dL Phosphorus 4.8 H (2.6-4.7) mg/dL Magnesium 1.7 L (1.8-2.4) mg/dL Total Bilirubin 0.4 (0.2-1.0) mg/dL AST 39 H (15-37) IU/L ALT 34 (14-63) IU/L Alkaline Phosphatase 44 L (46-116) U/L Total Protein 5.5 L (6.4-8.2) g/dL Albumin 2.8 L (3.4-5.0) g/dL Globulin 2.7 (2.6-4.0) g/dL Albumin/Globulin Ratio 1.0 (0.9-1.6) JEANNE Results - Last 24 hrs: Microbiology 08/24/20 19:43 Aerobic Blood Culture - Preliminary Blood - Venous - Lab Draw NO GROWTH AFTER 2 DAYS Anaerobic Blood Culture - Preliminary NO GROWTH AFTER 2 DAYS 08/24/20 19:38 Aerobic Blood Culture - Preliminary Blood - Venous NO GROWTH AFTER 2 DAYS Anaerobic Blood Culture - Preliminary NO GROWTH AFTER 2 DAYS 08/26/20 11:26 C. difficile Antigen & Toxins A,B - Final Stool / Feces 08/24/20 16:31 Urine Culture - Final Urine, Bladder No Growth Med Orders - Current: Current Medications Acetaminophen (Tylenol) 650 mg PO Q4H PRN PRN Reason: Pain (Mild 1-3)/fever Last Admin: 08/26/20 23:27 Dose: 650 mg Documented by: Heparin Sodium (Porcine) (Heparin Sodium) 5,000 units SUBCUT Q8H [facility] Last Admin: 08/27/20 06:30 Dose: 5,000 units Documented by: Pantoprazole Sodium 40 mg/ (Sodium Chloride) 10 mls @ 300 mls/hr IV Q24H [facility] Last Admin: 08/26/20 18:32 Dose: 300 mls/hr Documented by: Lactated Ringer's (Ringers, Lactated) 1,000 mls @ 125 mls/hr IV ASDIRECTED [facility] Last Admin: 08/27/20 07:42 Dose: 125 mls/hr Documented by: Ceftriaxone Sodium/Dextrose 1 (gm/ Premix) 50 mls @ 100 mls/hr IV Q24H [facility] Last Admin: 08/26/20 18:35 Dose: 100 mls/hr Documented by: Ondansetron HCl (Zofran Odt) 4 mg PO Q4H PRN PRN Reason: nausea, able to take PO Last Admin: 08/27/20 07:41 Dose: 4 mg Documented by: Discontinued Medications Ceftriaxone Sodium (Rocephin) 1 gm IVPUSH ONETIME ONE Stop: 08/24/20 17:10 Last Admin: 08/24/20 17:14 Dose: Not Given Documented by: Fluconazole (Diflucan 40 Mg/Ml Susp) 100 mg PO DAILY [facility] Stop: 08/31/20 19:31 Last Admin: 08/24/20 22:28 Dose: 100 mg Documented by: Fluconazole (Diflucan) 150 mg PO DAILY [facility] Stop: 08/25/20 09:01 Last Admin: 08/25/20 09:28 Dose: 150 mg Documented by: Fluconazole (Diflucan) 150 mg PO ONETIME [facility] Stop: 08/28/20 09:30 Heparin Sodium (Porcine) (Heparin Sodium) 5,000 units SUBCUT Q8H [facility] Last Admin: 08/25/20 06:29 Dose: Not Given Documented by: Ceftriaxone Sodium/Dextrose 1 (gm/ Premix) 50 mls @ 100 mls/hr IV ONETIME ONE Stop: 08/24/20 17:42 Last Admin: 08/24/20 17:20 Dose: 100 mls/hr Documented by: Lactated Ringer's (Ringers, Lactated) 1,000 mls @ 999 mls/hr IV BOLUS ONE Stop: 08/24/20 20:03 Last Admin: 08/24/20 21:06 Dose: 999 mls/hr Documented by: Ceftriaxone Sodium 1 gm/ (Sodium Chloride) 50 mls @ 100 mls/hr IV Q24H [facility] Last Admin: 08/25/20 19:15 Dose: 100 mls/hr Documented by: Lactated Ringer's (Ringers, Lactated) 1,000 mls @ 999 mls/hr IV .BOLUS ONE Stop: 08/25/20 12:48 Last Admin: 08/25/20 12:25 Dose: 999 mls/hr Documented by: Magnesium Sulfate (Magnesium Sulfate In Water Premix) 2 gm in 50 mls @ 50 mls/hr IV ONETIME ONE Stop: 08/27/20 08:29 Last Admin: 08/27/20 08:14 Dose: 50 mls/hr Documented by: Meclizine HCl (Antivert) 50 mg PO ONETIME ONE Stop: 08/24/20 14:54 Last Admin: 08/24/20 15:09 Dose: 50 mg Documented by:
[2020-08-28] MEDS ORDERED: Fluconazole 150 MG Tab PO SCH (09:00)
== END 2020-08-27 11:45 | disposition home or self-care (01) ==
LOC: MW.ED 14:32 → MW.MS 18:10
PROVIDERS: ADMIT Student in an Organized Health Care Education/Training Program; ATTEND Student in an Organized Health Care Education/Training Program
DX: N12 Tubulo-interstitial nephritis, not specified as acute or chronic (principal); N17.9 Acute kidney failure, unspecified; B37.3 Candidiasis of vulva and vagina; Z88.8 Allergy status to other drugs, medicaments and biological substances; Z88.2 Allergy status to sulfonamides; Z88.1 Allergy status to other antibiotic agents; Z79.899 Other long term (current) drug therapy; Z98.890 Other specified postprocedural states; Z20.828 Contact with and (suspected) exposure to other viral communicable diseases
CPT/HCPCS: 36415; 74176; 80048; 80053; 81001; 82570; 83735; 84100; 84300; 85025; 87040; 87086; 87324; 87635; 96365; 99285; A9270; C9113; J0696; J1644; J3475; J7050; J7120; 99284; U0002

== ENCOUNTER 2023-12-09 14:13 | Emergency (ER) | payer MEDICARE, OTHER ==
[2023-12-09 15:23] LABS: BASOPHILS ABSOLUTE AUTO 0.04 K/uL (0.00-0.20); BASOPHILS PERCENT AUTO 0.6 % (0.0-1.0); EOSINOPHILS ABSOLUTE AUTO 0.02 K/uL (0.00-0.45); EOSINOPHILS PERCENT AUTO 0.3 % (0.0-6.0); HEMATOCRIT 46.2 % (37.0-47.0); HEMOGLOBIN 15.8 g/dL (12.0-16.0); IMMATURE GRAN ABSOLUTE AUTO 0.02 K/uL (0.00-0.05); IMMATURE GRAN PERCENT AUTO 0.3 % (0.0-0.4); LYMPHOCYTES ABSOLUTE AUTO 1.51 K/uL (1.00-4.80); LYMPHOCYTES PERCENT AUTO 24.4 % (24.0-44.0); MEAN CORPUSCULAR HEMOGLOBIN 30.8 pg (28.0-32.0); MEAN CORPUSCULAR HGB CONC 34.2 g/dL (32.0-36.0); MEAN CORPUSCULAR VOLUME 90.1 fL (83.0-99.0); MEAN PLATELET VOLUME 9.3 fL (9.4-12.3); MONOCYTES ABSOLUTE AUTO 0.26 K/uL (0.00-0.80); MONOCYTES PERCENT AUTO 4.2 % (0.0-8.0); NEUTROPHILS ABSOLUTE AUTO 4.34 K/uL (1.80-7.70); NEUTROPHILS PERCENT AUTO 70.2 % (41.0-71.0); PLATELET COUNT,PLT 200 K/uL (150-400); RED BLOOD CELL COUNT 5.13 M/uL (4.10-5.30); WHITE BLOOD CELL COUNT,WBC 6.19 K/uL (3.9-11.3)
[2023-12-09] MEDS: Sodium Chloride 0.9% 1,000 ML IV STA ×2 (15:26→15:59)
[2023-12-09] MEDS: Sodium Chloride 0.9% 2.5 ML Syringe FLUSH PRN (15:26)
[2023-12-09] MEDS: Sodium Chloride 0.9% 10 ML Syringe FLUSH PRN (15:26)
[2023-12-09] MEDS: Ondansetron 4 MG/2 ML SDV IVPUSH STA (15:26)
[2023-12-09 16:20] LABS: A/G RATIO 1.1 (0.9-1.6); ALANINE AMINOTRANSFERASE,ALT 34 IU/L (14-63); ALBUMIN 3.8 g/dL (3.4-5.0); ALKALINE PHOSPHATASE 59 U/L (46-116); ASPARTATE AMNIOTRANSFERASE,AST 23 IU/L (15-37); BILIRUBIN TOTAL 0.6 mg/dL (0.2-1.0); BLOOD UREA NITROGEN,BUN 17 mg/dL (7.0-18.0); CALCIUM 9.2 mg/dL (8.5-10.1); CHLORIDE,CL 106 mmol/L (98-107); CREATININE 1.1 mg/dL (0.6-1.0); GLUCOSE RANDOM 126 mg/dL (74-106); LIPASE 37 U/L (16-77); POTASSIUM,K 4.1 mmol/L (3.5-5.1); PROTEIN TOTAL,TP 7.4 g/dL (6.4-8.2); SODIUM,NA 144 mmol/L (136-145)
[2023-12-09 16:21] LABS: ESTIMATED GFR 56 mL/min (>60)
[2023-12-09 16:49] LABS: CORONAVIRUS COVID-19 NAA NEGATIVE (NEGATIVE); INFLUENZA A NAA NEGATIVE (NEGATIVE); INFLUENZA B NAA NEGATIVE (NEGATIVE); RESPIRATORY SYNCYTIAL VIR NAA NEGATIVE (NEGATIVE)
[2023-12-09 17:07] LABS: APPEARANCE,URINE CLEAR; BILIRUBIN,URINE NEGATIVE (NEGATIVE); COLOR,URINE YELLOW; GLUCOSE,URINE NEGATIVE (NEGATIVE); KETONES,URINE 15 mg/dL (NEGATIVE); LEUKOCYTE ESTERASE,URINE NEGATIVE (NEGATIVE); NITRITE,URINE NEGATIVE (NEGATIVE); OCCULT BLOOD,URINE NEGATIVE (NEGATIVE); PROTEIN,URINE NEGATIVE (NEGATIVE); UROBILINOGEN,URINE 0.2 EU/dL (<2.0)
[2023-12-09] MEDS: Meclizine 25 MG Tab PO STA (17:11)
[2023-12-09 17:14] VITALS: BP 101/54; PULSE 69
== END 2023-12-10 18:14 | disposition home or self-care (01) ==
LOC: MW.ED 14:13
DX: R42 Dizziness and giddiness (principal); Z88.1 Allergy status to other antibiotic agents; Z88.8 Allergy status to other drugs, medicaments and biological substances; Z91.041 Radiographic dye allergy status; Z88.2 Allergy status to sulfonamides
CPT/HCPCS: 0241U; 36415; 80053; 81003; 83690; 83735; 84484; 85025; 93005; 96361; 96374; 99284; A9270; J2405; J3490; J7030; 93010

== ENCOUNTER 2024-09-21 09:15 | Emergency (ER) | payer MEDICARE, OTHER ==
[2024-09-21 09:51] LABS: BASOPHILS ABSOLUTE AUTO 0.03 K/uL (0.00-0.20); BASOPHILS PERCENT AUTO 0.5 % (0.0-1.0); EOSINOPHILS ABSOLUTE AUTO 0.05 K/uL (0.00-0.45); EOSINOPHILS PERCENT AUTO 0.8 % (0.0-6.0); HEMATOCRIT 41.8 % (37.0-47.0); HEMOGLOBIN 14.2 g/dL (12.0-16.0); IMMATURE GRAN ABSOLUTE AUTO 0.01 K/uL (0.00-0.05); IMMATURE GRAN PERCENT AUTO 0.2 % (0.0-0.4); LYMPHOCYTES ABSOLUTE AUTO 1.96 K/uL (1.00-4.80); LYMPHOCYTES PERCENT AUTO 30.4 % (24.0-44.0); MEAN CORPUSCULAR VOLUME 91.3 fL (83.0-99.0); MEAN PLATELET VOLUME 9.5 fL (9.4-12.3); MONOCYTES ABSOLUTE AUTO 0.43 K/uL (0.00-0.80); MONOCYTES PERCENT AUTO 6.7 % (0.0-8.0); NEUTROPHILS ABSOLUTE AUTO 3.97 K/uL (1.80-7.70); NEUTROPHILS PERCENT AUTO 61.4 % (41.0-71.0); PLATELET COUNT,PLT 212 K/uL (150-400); RED BLOOD CELL COUNT 4.58 M/uL (4.10-5.30); WHITE BLOOD CELL COUNT,WBC 6.45 K/uL (3.9-11.3)
[2024-09-21] MEDS ORDERED: predniSONE 10 MG Tab PO SCH (10:00)
[2024-09-21 10:02] LABS: A/G RATIO 0.9 (0.9-1.6); ALBUMIN 3.5 g/dL (3.4-5.0); BILIRUBIN TOTAL 0.7 mg/dL (0.2-1.0); CALCIUM 9.1 mg/dL (8.5-10.1); CARBON DIOXIDE,CO2 26.8 mmol/L (21.0-32.0); CREATININE 1.2 mg/dL (0.6-1.0); EST CRCL DRUG DOSING (CG) 35.27 mL/min; POTASSIUM,K 4.1 mmol/L (3.5-5.1); PROTEIN TOTAL,TP 7.5 g/dL (6.4-8.2)
[2024-09-21] MEDS: Ketorolac 30 MG/ML SDV IVPUSH ONE ×2 (10:03→10:08)
[2024-09-21] MEDS: diphenhydrAMINE 25 MG Cap PO ONE (10:08)
[2024-09-21] MEDS: Famotidine 20 MG Tab PO ONE (10:08)
[2024-09-21 10:13] LABS: APPEARANCE,URINE SLT CLOUDY; BILIRUBIN,URINE NEGATIVE (NEGATIVE); COLOR,URINE YELLOW; GLUCOSE,URINE NEGATIVE (NEGATIVE); KETONES,URINE NEGATIVE (NEGATIVE); LEUKOCYTE ESTERASE,URINE MODERATE (NEGATIVE); NITRITE,URINE NEGATIVE (NEGATIVE); OCCULT BLOOD,URINE NEGATIVE (NEGATIVE); PROTEIN,URINE NEGATIVE (NEGATIVE); UROBILINOGEN,URINE 0.2 EU/dL (<2.0)
[2024-09-21 10:32] LABS: BACTERIA,URINE FEW (NEGATIVE); EPITHELIAL CELLS,URINE MODERATE (NONE-FEW); RBC,URINE 0-2 (0-2/HPF)
[2024-09-21 12:35] VITALS: BP 105/61; PULSE 65
== END 2024-09-21 13:00 | disposition home or self-care (01) ==
LOC: MW.ED 09:15
DX: K57.32 Diverticulitis of large intestine without perforation or abscess without bleeding (principal); Z90.49 Acquired absence of other specified parts of digestive tract; Z88.1 Allergy status to other antibiotic agents; Z88.2 Allergy status to sulfonamides; Z88.8 Allergy status to other drugs, medicaments and biological substances; Z91.041 Radiographic dye allergy status; Z79.2 Long term (current) use of antibiotics
CPT/HCPCS: 36415; 74176; 80053; 81001; 85025; 96374; 99284; J1885

== ENCOUNTER 2024-11-06 06:39 | Day surgery (SDC) | payer MEDICARE, OTHER ==
[2024-11-06] MEDS: Lactated Ringers 1,000 ML IV SCH (07:00)
[2024-11-06] MEDS ORDERED: propofoL 500 MG/50 ML 50 ML ONE (07:31)
[2024-11-06] MEDS ORDERED: Lidocaine 2% 5 ML SDV ONE (07:31)
[2024-11-06] MEDS ORDERED: Ondansetron 4 MG/2 ML SDV ONE (07:46)
[2024-11-06] MEDS ORDERED: Lactated Ringers 1,000 ML IV SCH (08:45)
[2024-11-06 12:25] VITALS: BP 116/54; PULSE 54
== END 2024-11-06 09:15 | disposition home or self-care (01) ==
LOC: MW.SDS 06:39
PROVIDERS: ATTEND Surgery
DX: K57.30 Diverticulosis of large intestine without perforation or abscess without bleeding (principal); E78.5 Hyperlipidemia, unspecified; J44.9 Chronic obstructive pulmonary disease, unspecified; Z79.899 Other long term (current) drug therapy; Z88.2 Allergy status to sulfonamides; Z91.041 Radiographic dye allergy status; Z91.048 Other nonmedicinal substance allergy status; Z88.1 Allergy status to other antibiotic agents
CPT/HCPCS: 45378; J2405; J2704; J7120; 00812; J3490

== ENCOUNTER 2025-08-20 07:05 | Day surgery (SDC) | payer MEDICARE, OTHER ==
[2025-08-20] MEDS ORDERED: Levofloxacin/Dextrose 5%-Water 500 MG in Premix Bag 1 BAG IV ONE (07:29)
[2025-08-20] MEDS ORDERED: Propofol 200 MG/20 ML SDV ONE (07:57)
[2025-08-20] MEDS ORDERED: Levofloxacin/Dextrose 5%-Water 150 ML IV ONE (08:05)
[2025-08-20] MEDS: Levofloxacin/Dextrose 5%-Water 750 MG in Premix Bag 1 BAG IV ONE (08:17)
[2025-08-20] MEDS: Lactated Ringers 1,000 ML IV SCH (08:20)
[2025-08-20] MEDS ORDERED: dexmedeTOMIDine HCl 200 MCG/2 ML SDV ONE (09:09)
[2025-08-20] MEDS ORDERED: Lactated Ringers 1,000 ML IV SCH (09:15)
[2025-08-20 11:08] VITALS: BP 92/50; PULSE 66
== END 2025-08-20 10:20 | disposition home or self-care (01) ==
LOC: MW.SDS 07:05
PROVIDERS: ATTEND Surgery
DX: K20.91 Esophagitis, unspecified with bleeding (principal); K29.50 Unspecified chronic gastritis without bleeding; J44.9 Chronic obstructive pulmonary disease, unspecified; Z88.1 Allergy status to other antibiotic agents; Z91.041 Radiographic dye allergy status; Z88.2 Allergy status to sulfonamides; Z79.899 Other long term (current) drug therapy
CPT/HCPCS: 43239; J1956; J2704; J7120; 88305

== ENCOUNTER 2025-09-13 06:20 | Day surgery (SDC) | payer MEDICARE, OTHER ==
[~2025-09-13 06:20] MED LIST: Albuterol 0.083% 2.5 MG/3 ML Neb Soln NEB PRN; Naloxone 0.4 MG/ML SDV IVPUSH PRN; ceFAZolin 1 GM in Water For Injection, Sterile 10 ML IVPUSH ONE
[2025-09-13] MEDS: Lactated Ringers 1,000 ML IV SCH (06:45)
[2025-09-13] MEDS: Scopalamine 1mg/3day Transdermal Patch TOP ONE (06:46)
[2025-09-13] MEDS ORDERED: propofoL 500 MG/50 ML 50 ML ONE ×2 (07:07→08:32)
[2025-09-13] MEDS ORDERED: Dexamethasone 4 MG/ML 5 ML MDV ONE (07:07)
[2025-09-13] MEDS ORDERED: Ondansetron 4 MG/2 ML SDV ONE (07:07)
[2025-09-13] MEDS ORDERED: Indocyanine Green 25 MG SDV ONE (07:10)
[2025-09-13] MEDS ORDERED: dexmedeTOMIDine HCl 200 MCG/2 ML SDV ONE (07:10)
[2025-09-13] MEDS ORDERED: Ropivacaine 0.5% 5 MG/ML 30 ML SDV ONE (07:10)
[2025-09-13] MEDS ORDERED: fentaNYL 100 MCG/2 ML SDV ONE (07:16)
[2025-09-13] MEDS ORDERED: Magnesium Sulfate (4.06 MEQ/ML) 5 GM/10 ML SDV ONE (08:14)
[2025-09-13] MEDS ORDERED: Ketamine HCL/NACL, ISO-OSM 50 MG/5 ML Syringe ONE (08:21)
[2025-09-13] MEDS ORDERED: Ketorolac 30 MG/ML SDV ONE (08:49)
[2025-09-13] MEDS ORDERED: Acetaminophen/HYDROcodone 325-5 MG Tab PO PRN (09:18)
[2025-09-13] MEDS ORDERED: Lactated Ringers 1,000 ML IV SCH (09:30)
[2025-09-13] MEDS: fentaNYL 50 MCG/ML SDV IVPUSH PRN (10:41)
[2025-09-13 11:19] VITALS: BP 95/55; PULSE 45
[2025-09-13] MEDS: Ondansetron 4 MG/2 ML SDV IVPUSH PRN (12:03)
== END 2025-09-13 12:50 | disposition home or self-care (01) ==
LOC: MW.SDS 06:20
PROVIDERS: ATTEND Surgery
DX: K80.10 Calculus of gallbladder with chronic cholecystitis without obstruction (principal); E78.5 Hyperlipidemia, unspecified; Z88.1 Allergy status to other antibiotic agents; Z88.8 Allergy status to other drugs, medicaments and biological substances; Z88.2 Allergy status to sulfonamides; Z91.041 Radiographic dye allergy status; Z91.09 Other allergy status, other than to drugs and biological substances; Z79.899 Other long term (current) drug therapy
CPT/HCPCS: 47562; A9270; J0665; J0690; J1100; J1885; J2371; J2405; J2704; J2795; J3010; J3475; J7120; 00790; 64488; 88304; J3490

== ENCOUNTER 2025-09-19 17:13 | Emergency (ER) | payer MEDICARE, OTHER ==
[2025-09-19 18:01] LABS: BASOPHILS ABSOLUTE AUTO 0.05 K/uL (0.00-0.20); BASOPHILS PERCENT AUTO 0.4 % (0.0-1.0); EOSINOPHILS ABSOLUTE AUTO 0.03 K/uL (0.00-0.45); EOSINOPHILS PERCENT AUTO 0.3 % (0.0-6.0); IMMATURE GRAN ABSOLUTE AUTO 0.04 K/uL (0.00-0.05); IMMATURE GRAN PERCENT AUTO 0.3 % (0.0-0.4); LYMPHOCYTES ABSOLUTE AUTO 1.51 K/uL (1.00-4.80); LYMPHOCYTES PERCENT AUTO 13.2 % (24.0-44.0); MEAN PLATELET VOLUME 9.6 fL (9.4-12.3); MONOCYTES ABSOLUTE AUTO 0.67 K/uL (0.00-0.80); MONOCYTES PERCENT AUTO 5.9 % (0.0-8.0); NEUTROPHILS ABSOLUTE AUTO 9.14 K/uL (1.80-7.70); NEUTROPHILS PERCENT AUTO 79.9 % (41.0-71.0); NRBC ABSOLUTE 0.00 K/uL (0.00-0.02); NRBC PERCENT 0.0 /100WBC (0.0-0.2); PLATELET COUNT,PLT 199 K/uL (150-400); RED BLOOD CELL COUNT 4.89 M/uL (4.10-5.30); WHITE BLOOD CELL COUNT,WBC 11.44 K/uL (3.9-11.3)
[2025-09-19 18:26] LABS: A/G RATIO 1.1 (0.9-1.6); ALANINE AMINOTRANSFERASE,ALT 47.0 IU/L (14-63); ASPARTATE AMNIOTRANSFERASE,AST 30.0 IU/L (15-37); BILIRUBIN TOTAL 0.9 mg/dL (0.2-1.0); BLOOD UREA NITROGEN,BUN 16.0 mg/dL (7.0-18.0); CARBON DIOXIDE,CO2 25.1 mmol/L (21.0-32.0); CHLORIDE,CL 102.0 mmol/L (98-107); CREATININE 1.1 mg/dL (0.6-1.0); EST CRCL DRUG DOSING (CG) 37.96 mL/min; ESTIMATED GFR 55.0 mL/min (>60); GLUCOSE RANDOM 106.0 mg/dL (74-106); POTASSIUM,K 3.4 mmol/L (3.5-5.1); PROTEIN TOTAL,TP 7.3 g/dL (6.4-8.2); SODIUM,NA 137.0 mmol/L (136-145)
[2025-09-19] MEDS: Ketorolac 30 MG/ML SDV IVPUSH ONE (19:27)
[2025-09-19 20:16] LABS: APPEARANCE,URINE CLEAR; GLUCOSE,URINE NEGATIVE (NEGATIVE); OCCULT BLOOD,URINE TRACE-INTACT (NEGATIVE)
[2025-09-19 20:30] LABS: EPITHELIAL CELLS,URINE RARE (NONE-FEW)
[2025-09-19 21:00] VITALS: BP 121/55; PULSE 63
== END 2025-09-19 21:00 | disposition home or self-care (01) ==
LOC: MW.ED 17:13
DX: K59.00 Constipation, unspecified (principal); Z75.3 Unavailability and inaccessibility of health-care facilities; Z88.2 Allergy status to sulfonamides; Z91.041 Radiographic dye allergy status; Z88.8 Allergy status to other drugs, medicaments and biological substances; Z79.899 Other long term (current) drug therapy; Z90.49 Acquired absence of other specified parts of digestive tract
CPT/HCPCS: 36415; 74176; 80053; 81001; 85025; 96361; 96374; 99284; J7030; 99283; J1885